=== PATIENT | female | born 1935 | race Caucasian/White ===

== ENCOUNTER → 2019-10-21 11:25 | Outpatient (BNVA) | payer MEDICARE, MEDICAID, SELFPAY | PROVIDERS: Family Provider Electrodiagnostic Medicine; PCP Electrodiagnostic Medicine; Visit Provider Specialist | DX: M25.551 Pain in right hip (principal); S72.141A Displaced intertrochanteric fracture of right femur, initial encounter for closed fracture; X58.XXXA Exposure to other specified factors, initial encounter | CPT/HCPCS: 73502 ==

== ENCOUNTER 2019-10-30 13:28 | Outpatient (RCR) | payer MEDICARE, MEDICAID, SELFPAY ==
[2019-10-30 14:24] LABS: Basophils % 0.3 %; Eosinophils # 0.4 10^3/uL (0.0-0.8); Lymphocytes # 1.7 10^3/uL (0.8-4.8); Lymphocytes % 18.8 %; Mean Corpuscular Hemoglobin 29.4 pg (28.0-34.0); Monocytes # 0.8 10^3/uL (0.2-0.9); Monocytes % 9.3 %; Neutrophils % 67.3 %; Nucleated Red Blood Cells % 0 %; Platelet Count 388 10^3/cmm (130-400); Red Blood Count 4.42 10^6/uL (4.1-5.3); Red Cell Distribution Width 13.9 % (12.1-15.1); White Blood Count 8.9 10^3/uL (4.0-10.0)
[2019-11-02 21:40] LABS: Influenza A by IFA Negative (Negative); Influenza B by IFA Negative (Negative)
== END 2019-11-06 23:59 | disposition home or self-care (01) ==
LOC: LAB 13:28
PROVIDERS: Family Provider Electrodiagnostic Medicine; PCP Electrodiagnostic Medicine; Visit Provider Internal Medicine
DX: D64.9 Anemia, unspecified (principal)
CPT/HCPCS: 85025; 87804

== ENCOUNTER → 2019-11-06 09:16 | Day surgery (SDC) | payer MEDICARE, MEDICAID, SELFPAY ==
[2019-11-05 10:37] VITALS: BMI 18.8
[2019-11-06 09:38] VITALS: BP 169/72; PULSE 72; RESP 18; TEMP 36.9; O2SAT 95
--- NOTE | 2019-11-06 09:56 | XR_ITS ---
WS: [id number] Portable AP upright chest, 11/06/2019 Clinical Data: rule out pneumonia Comparison: Portable chest, 04/14/2019. Findings: No nodules, masses or effusions are seen. The heart is normal. The pulmonary vascularity is not increased.There is a minimal patchy opacity at the right lung base which could represent acute p neumonia. No pneumothorax is seen. There is a hiatal hernia behind the heart. The aortic arch and xi cending aorta are tortuous. Degenerative changes of both shoulder joints is seen. XR/XR chest 1V portable 32361 Impression: 1. Minimal patchy opacity in right lung base which could represent acute pneumo delores and recommend repeat chest x-ray in one to 2 days. 2. Atherosclerosis and hiatal hernia.
[2019-11-06] MEDS: sodium chloride 0.9% 1,000 ML 30 ML IV (10:15)
--- NOTE | 2019-11-06 10:18 | P.ANES_ITS ---
Pre-Anesthetic Assessment Pre-Anesthetic Assessment: Height/Weight: Height 1.7 m Weight 54.431 kg Temp Pulse Resp BP Pulse Ox 98.4 F 72 18 169/72 95 11/06/19 09:38 11/06/19 09:38 11/06/19 09:38 11/06/19 09:38 11/06/19 09:38 Preop Diagnosis: Painful right trochanteric nail hardware Proposed Procedure: Operation Date: 11/06/19 10:45 Proposed Procedures p Hardware Removal Left Hip 37522 T84.84XA(Right) - Delmy Leal MD Familial anesthetic complications: No trouble Was Beta Yue taken within 24 hours: N/A Last intake: NPO > 8 hrs Social: Social History: Tobacco Packs per day: 1 ppd Exam: Pre-Anes Outpt Exam: alert, oriented x 3 and regular rate & rhythm Additional Exam Findings (including area of procedure): Strong wheezes in all lung ortiz, spitting up mucus - will give atrovent and albuterol Airway: Cervical ROM: WNL MP: 2 Additional comments: edentulous Pulmonary: Pulmonary: COPD Comments: hx acute purulent bronchitis, not on oxygen for COPD, has taken steroids within last year, no hospital admissions. Last week had cough and patient felt drug out. She saw Dr. Bonilla and was given a zpack. Today is her last dose of that medicine. ON saturday she was seen at [facility] by dr. antony angel with no concerns. patient feels 100% better,no fever at correction. temp today 98.4 f CV/HEM: CV/HEM: Anemia, Arrythmia and HTN Comments: hx NSTEMI 2017 : : None reported Hepatic: Hepatic: None reported GI: GI: None reported Comments: hx upper gi blled Metabolic: Metabolic: Thyroid Musc/skel: Musc/skel: Lower Back Pain Neuropsych: Neuropsych: CVA Anesthetic Plan: ASA status: IV Anesthesia: General Risk of > 500 ml blood loss (7ml/kg in children): No PFSH Anesthesia PFSH: Social History Smoking and tobacco status: current every day smoker Alcohol intake: never Data Anesthesia Cardiac Studies: No Data to Display
[2019-11-06 10:37] LABS: Basophils % 0.3 %; Eosinophils # 0.1 10^3/uL (0.0-0.8); Eosinophils % 1.4 %; Hematocrit 36.5 % (37.0-47.0); Hemoglobin 11.9 g/dL (11.5-15.3); Lymphocytes # 1.2 10^3/uL (0.8-4.8); Lymphocytes % 11.9 %; Mean Corpuscular HGB Conc 32.6 g/dL (30.0-36.0); Mean Corpuscular Hemoglobin 28.9 pg (28.0-34.0); Mean Corpuscular Volume 88.6 fL (81-99); Mean Platelet Volume 9.5 fL (7.4-10.4); Monocytes # 1.1 10^3/uL (0.2-0.9); Monocytes % 10.9 %; Neutrophils # 7.7 10^3/uL (1.8-7.7); Nucleated Red Blood Cells % 0 %; Platelet Count 434 10^3/cmm (130-400); Red Blood Count 4.12 10^6/uL (4.1-5.3); Red Cell Distribution Width 13.2 % (12.1-15.1); White Blood Count 10.2 10^3/uL (4.0-10.0)
[2019-11-06] MEDS: ipratropium 0.5 mg/2.5 mL Neb INHALATION (10:42)
[2019-11-06 10:45] VITALS: PULSE 66; RESP 18; O2SAT 93
[2019-11-06 10:50] VITALS: PULSE 68
[2019-11-06 10:51] LABS: Anion Gap 14.4 (5-19); Blood Urea Nitrogen 9 mg/dL (8-23); Calcium 9.8 mg/dL (8.5-10.5); Carbon Dioxide 32 mmol/L (22-29); Chloride 94 mmol/L (98-107); Glucose 134 mg/dL (74-106); Osmolality Calculated 282 mOsm/kg (285-295); Potassium 3.4 mmol/L (3.5-5.1); Sodium 137 mmol/L (136-145)
--- NOTE | 2019-11-06 13:10 | SUR.OPER ---
LEAD TELLER attempted to do a spinal, unsuccessful. Patient asked to stop and do procedure when she was over pneumonia. Dr. Leal called to room, talked to patient and agreed to abort case. Patient transferred to OPS
--- NOTE | 2019-11-06 13:14 | PM.MISC ---
Miscellaneous Note Purpose of Documentation: Cancellation of surgery Note: This 83-year-old woman presented today for removal and replacement of hardware from her right hip. The hardware was prominent and causing her discomfort. She presented to the department with a history of a pneumonia which have been treated with 5 days of antibiotics, but she did still have some respiratory symptoms. Additionally, the patient had taken Tamiflu recently secondary to concern for flu. The patient decided to proceed with surgery if we were able to obtain a spinal. This was not able to be placed. The patient wished to discontinue the surgery after she had had the spinal anesthetic attempted.
--- NOTE | 2019-11-06 13:17 | PM.HPUD ---
H&P update H&P Update: DATE OF SURGERY/PROCEDURE: 11/06/19 DATE H&P PERFORMED: 10/21/19 CHANGES TO PREVIOUS DOCUMENTATION: Patient has had symptoms of upper respiratory infection. She has been treated with antibiotics over the past 5 days. She would like to proceed with an attempt at spinal anesthetic for removal and reinsertion of hardware. She states that if the spine was not successful, she would prefer to cancel the case. PREOP DIAGNOSIS: Retained painful hardware right hip PLANNED PROCEDURE: Operation Date: 11/06/19 10:45 Proposed Procedures p Hardware Removal Right Hip 77484 T84.84XA(Right) - Delmy Leal MD Full H&P Medications/Allergies: Current Medications: Current Medications Generic Name Dose Route Start Last Admin Trade Name Freq PRN Reason Stop Dose Admin Sodium Chloride 1,000 mls @ 30 ml s/hr 11/06/19 09:45 11/06/19 10:15 Sodium Chloride 0.9% IV 11/07/19 09:44 30 mls/hr .Q24H DANIAL Administration Perinent History: Social History: Social History Smoking and tobacco status: current every day smoker Alcohol intake: never
[2019-11-06 13:20] VITALS: BP 152/72; PULSE 72; RESP 20; TEMP 37; O2SAT 96
[2019-11-06 13:45] VITALS: BP 155/86; PULSE 76; RESP 20; TEMP 37.2; O2SAT 97
--- NOTE | 2019-11-06 14:03 | SUR.OPER ---
SURGERY CANCELLED DUE TO PT REQUEST AND ON OPINION OF ANESTHESIOLOGIST .PT BROUGHT BACK TO OPS PHASE II AND OBSERVED. PT A+O X 3 TOLERATING PO FLUIDS WELL. FAMILY OF PT CALLED AND INFORMED PER DE REQUEST. [facility] NURSE MARTIN DELGADO.
--- NOTE | 2019-11-06 14:19 | SUR.OPER ---
PT TRANSPORTED BY [facility] TRANSPORT BACK TO [facility].
== END ==
PROVIDERS: Family Provider Electrodiagnostic Medicine; PCP Electrodiagnostic Medicine; Visit Provider Specialist
PROC: (CPT 20680; 2019-11-06 10:45)
DX: Z53.9 Procedure and treatment not carried out, unspecified reason (principal); T84.84XA Pain due to internal orthopedic prosthetic devices, implants and grafts, initial encounter
CPT/HCPCS: 12345; 36415; 71045; 80048; 85025; 94640; J2001; J2704; J7030; J7611; J7644

== ENCOUNTER → 2019-12-09 11:54 | Outpatient (BNVA) | payer MEDICARE, MEDICAID, SELFPAY | PROVIDERS: Family Provider Electrodiagnostic Medicine; PCP Electrodiagnostic Medicine; Visit Provider Specialist | DX: M25.551 Pain in right hip (principal); T84.84XA Pain due to internal orthopedic prosthetic devices, implants and grafts, initial encounter; S72.141A Displaced intertrochanteric fracture of right femur, initial encounter for closed fracture; X58.XXXA Exposure to other specified factors, initial encounter | CPT/HCPCS: 73503 ==

== ENCOUNTER → 2020-11-09 10:26 | Outpatient (BNVA) | payer MEDICARE, MEDICAID, SELFPAY | PROVIDERS: Family Provider Electrodiagnostic Medicine; PCP Electrodiagnostic Medicine; Visit Provider Specialist | DX: M25.551 Pain in right hip (principal) | CPT/HCPCS: 73502 ==

== ENCOUNTER 2020-11-15 21:09 | Inpatient (IN) | payer MEDICARE, MEDICAID, SELFPAY ==
[2020-11-11 09:14] VITALS: BMI 17.8
[2020-11-11 09:30] LABS: Basophils # 0.1 10^3/uL (0.0-0.1); Basophils % 0.3 %; Eosinophils # 0.4 10^3/uL (0.0-0.8); Eosinophils % 2.4 %; Hematocrit 40.1 % (37.0-47.0); Hemoglobin 12.4 g/dL (11.5-15.3); Lymphocytes # 1.5 10^3/uL (0.8-4.8); Lymphocytes % 9.2 %; Mean Corpuscular HGB Conc 30.9 g/dL (30.0-36.0); Mean Corpuscular Hemoglobin 28.8 pg (28.0-34.0); Mean Platelet Volume 9.8 fL (7.4-10.4); Monocytes # 0.9 10^3/uL (0.2-0.9); Monocytes % 5.3 %; Neutrophils # 13.52 10^3/uL (1.8-7.7); Neutrophils % 82.5 %; Nucleated Red Blood Cells % 0 %; Platelet Count 406 10^3/cmm (130-400); Red Blood Count 4.31 10^6/uL (4.1-5.3); Red Cell Distribution Width 14.9 % (12.1-15.1); White Blood Count 16.4 10^3/uL (4.0-10.0)
[2020-11-11 09:32] LABS: Add Urine Microscopic? YES; Bilirubin Urine Neg (Negative); Blood Urine Trace (Negative); Glucose Urine UA Norm (Normal); Ketones Urine Negative (Negative); Leukocyte Esterase Urine Negative (Negative); Nitrate Urine Negative (Negative); Protein Urine Neg (Negative); Specific Gravity, Urine 1.015 (1.005-1.030); Urine Appearance Clear (CLEAR); Urine Color Yellow (Yellow); Urobilinogen Urine Norm (Negative); pH Urine 6 (5-7)
--- NOTE | 2020-11-11 09:35 | ANES.PREANE2 ---
Pre-Anesthetic Assessment Pre-Anesthetic Assessment: Height/Weight: Height 1.7 m Weight 51.71 kg Preop Diagnosis: Failed hardware right hip Proposed Procedure: Operation Date: 11/15/20 13:25 Proposed Procedures p Total Hip Arthroplasty 10908 T84.84XA(Right) - Delmy Leal MD s Hardware Removal Hip(Not Applicable) - Delmy Leal MD Familial anesthetic complications: None Social: Social History: Tobacco and No alcohol Exam: Pre-Anes Outpt Exam: alert, oriented x 3, clear to auscultation bilaterally and regular rate & rhythm Airway: MP: 2 Dentition: False Pulmonary: Pulmonary: COPD CV/HEM: CV/HEM: HTN GI: GI: GERD Metabolic: Metabolic: Thyroid Musc/skel: Musc/skel: OA/DJD Anesthetic Plan: ASA status: 3 Anesthesia: General Risk of > 500 ml blood loss (7ml/kg in children): Yes, adequate IV access and fluids planned PFSH Anesthesia PFSH: Surgical History History of hip surgery History of total left hip arthroplasty Social History Smoking and tobacco status: current every day smoker Alcohol intake: never Data Anesthesia CBC & Chem 7: 11/11/20 09:05 11/11/20 09:05 Other Labs: Laboratory Results - last 48 hr 11/11/20 11/11/20 09:05 09:05 WBC 16.4 H RBC 4.31 Hgb 12.4 Hct 40.1 MCV 93.0 MCH 28.8 MCHC 30.9 RDW 14.9 Plt Count 406 H MPV 9.8 Neut % (Auto) 82.5 Lymph % (Auto) 9.2 [place] % (Auto) 5.3 Eos % (Auto) 2.4 Baso % (Auto) 0.3 Neut # (Auto) 13.52 H Lymph # (Auto) 1.5 [place] # (Auto) 0.9 Eos # (Auto) 0.4 Baso # (Auto) 0.1 Nucleated RBC % (auto) 0 Nucleated RBCs # 0.0 Urine Color Yellow Urine Appearance Clear Urine pH 6 Ur Specific [place] 1.015 Urine Protein Neg Urine Glucose (UA) Norm Urine Ketones Negative Urine Blood Trace H Urine Nitrate Negative Urine Bilirubin Neg Urine Urobilinogen Norm Ur Leukocyte Esterase Negative Amorphous Sediment Not Reportable Cardiac Studies: No Data to Display
--- NOTE | 2020-11-11 09:40 | ECG_ITS ---
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 Measurements Intervals [place] Rate: 64 P: UT: QRS: 53 QRSD: 87 T: 64 QT: 391 QTc: 406 Interpretive Statements JUNCTIONAL RHYTHM Compared to ECG 04/14/2019 15:48:33 Supraventricular rhythm now present Sinus rhythm no longer present T-wave abnormality no longer present Electronically Signed On 11-12-2020 11:10:27 AIR CONDITIONING MANAGER by Bayron Betts M.D. [email or web address]
[2020-11-11 09:51] LABS: Alanine Aminotransferase 8 U/L (0-33); Alkaline Phosphatase 103 IU/L (35-105); Anion Gap 11.3 (5-19); Aspartate Amino Transferase 18 U/L (0-32); Blood Urea Nitrogen 12 mg/dL (8-23); Calcium 9.3 mg/dL (8.5-10.5); Carbon Dioxide 32 mmol/L (22-29); Chloride 97 mmol/L (98-107); Globulin 3.4 g/dL (1.3-4.6); Glucose 121 mg/dL (65-115); Osmolality Calculated 283 mOsm/kg (285-295); Potassium 4.3 mmol/L (3.5-5.1); Sodium 136 mmol/L (136-145); Total Bilirubin 0.4 mg/dL (0.15-1.2); Total Protein 7.4 g/dL (6.6-8.7)
[2020-11-11 10:09] LABS: Bacteria Urine TRACE /hpf; RBC Urine 0-4 /hpf (0-2); WBC Urine 0-4 /hpf (0-5)
[2020-11-15] VITALS (18 sets, daily range): BP systolic 99–140; BP diastolic 20–71; PULSE 63–72; RESP 14–20; TEMP 36.1–36.7; O2SAT 90–100
[2020-11-15] MEDS: sodium chloride 0.9% 1,000 ML 30 ML IV (13:10)
[2020-11-15] MEDS: CELEcoxib 200 mg Capsule 400 MG PO (13:19)
[2020-11-15] MEDS: vancomycin 1,000 MG in sodium chloride 0.9% 250 ML 250 MG IV ×2 (13:30→22:51)
--- NOTE | 2020-11-15 14:01 | W.PM.OPSUD ---
Surgery/Procedure H&P Update DATE OF PROCEDURE: November 15, 2020 DATE H&P PERFORMED: 11/09/20 H&P UPDATE INFORMATION: I have reviewed H&P completed within last 30 days, I have examined patient prior to procedure, No changes to prior documentation and H&P is in [facility] EMR on date indicated PREOP DIAGNOSIS: Retained painful hardware right hip with erosion of acetabulum PLANNED PROCEDURE: Operation Date: 11/15/20 13:25 Proposed Procedures p Total Hip Arthroplasty 21809 T84.84XA(Right) - Delmy Leal MD s Hardware Removal Hip (Not Applicable) - Delmy Leal MD Related Problem List Diagnoses (1) Painful orthopaedic hardware: (2) Intertrochanteric fracture of right hip: Qualifiers: Encounter type: sequela Fracture type: closed Fracture alignment: displaced Qualified Code(s): S72.141S - Displaced intertrochanteric fracture of right femur, sequela
--- NOTE | 2020-11-15 14:04 | P.ANESUD_ITS ---
Pre-Anesthetic Update Pre-Anesthetic Assessment: Date of Surgery/Procedure: 11/15/20 Preop Carmen gnosis: Retained painful hardware right hip with erosion of acetabulum Proposed Procedure: Operation Date: 11/15/20 13:25 Proposed Procedures p Total Hip Arthroplasty 83051 T84.84XA(Right) - Delmy Leal MD s Hardware Removal Hip 05016(Not Applicable) - Delmy Leal MD Any changes to Pre-Anesthetic Assessment?: No Last Intake: Intake Last Liquid Date 11/15/20 Last Liquid Time 19:00 Last Solid Date 11/15/20 Last Solid Time 17:00 Vitals: Temperature 98.1 F 11/15/20 13:04 Temperature Source Temporal Artery S can 11/15/20 13:04 Pulse Rate 65 11/15/20 13:04 Pulse Rhythm 11/15/20 13:00 Pulse Strength 3+ Normal 11/15/20 13:00 Respiratory Rate 18 11/15/20 13:04 Blood Pressure 135/56 11/15/20 13:04 Blood Pressure Shelly n 82 11/15/20 13:04 Pulse Oximetry 90 11/15/20 13:04 Oxygen Delivery Me thod 11/15/20 13:04 Exam: Pre-Anes Outpt Exam: alert, oriented x 3, clear to auscultation bilaterally and regular rate & rhythm Cardiac Studies: No Data to Display
[2020-11-15] MEDS: ceFAZolin 1,000 mg SDV 1000 MG IRRIGATION (16:24)
[2020-11-15] MEDS: vancomycin 1,000 MG SDV 1000 MG XX (16:25)
--- NOTE | 2020-11-15 18:46 | XR_ITS ---
WS: [id number] Right hip, 7 views, 11/15/2020 Clinical Data: intra-op Comparison: Right hip and pelvis, 11/09/2020. Findings: There has been a complex revision of the right hip nail. There is a different intramedullary marilynn in t he proximal portion of the left femur. There is an acetabular cup in the right acetabulum fixed with an orthopedic screw.The proximal right femoral head, neck and intertrochanteric region have been rese cted. There are retractors in the region of the right hip. XR/XR hip RT 2-3V wo/w pel* [id number] Impression: Revision of right hip nail reducing right intertrochanteric fracture. Insertion of right acetabular cup and new intramedullary marilynn with resection of the proximal right femur.
[2020-11-15 18:56] LABS: Basophils % 0.5 %; Eosinophils # 0.4 10^3/uL (0.0-0.8); Eosinophils % 5.7 %; Hematocrit 31.2 % (37.0-47.0); Hemoglobin 9.7 g/dL (11.5-15.3); Lymphocytes # 1.5 10^3/uL (0.8-4.8); Lymphocytes % 19.8 %; Mean Corpuscular HGB Conc 31.1 g/dL (30.0-36.0); Mean Corpuscular Hemoglobin 29.5 pg (28.0-34.0); Mean Corpuscular Volume 94.8 fL (81-99); Mean Platelet Volume 10.1 fL (7.4-10.4); Monocytes # 0.8 10^3/uL (0.2-0.9); Monocytes % 10.1 %; Neutrophils % 63.1 %; Nucleated Red Blood Cells % 0 %; Platelet Count 299 10^3/cmm (130-400); Red Blood Count 3.29 10^6/uL (4.1-5.3); Red Cell Distribution Width 14.6 % (12.1-15.1); White Blood Count 7.8 10^3/uL (4.0-10.0)
[2020-11-15] MEDS: tranexamic acid 1,000 mg/10mL SDV 1000 MG (20:00)
--- NOTE | 2020-11-15 20:53 | SUR.PHASEI ---
2052 PT HAS SENSATION/MOVEMENT TO BILATERAL LOWER EXTREMITIES, R. PEDAL PULSE PALPATED, CAP REFILL <3 SEC, FIRST ICE APPLIED
--- NOTE | 2020-11-15 20:59 | XR_ITS ---
WS: [id number] Right hip, AP and lateral, AP pelvis, yesterday, 2056 hours Clinical Data: Status post revision total hip arthroplasty right Comparison: Right hip and femur, 11/15/2020, 1845 hours. Findings: A right hip arthroplasty is in good position. The femoral head portion is within the acetabular cup. There is a long intramedullary marilynn in the proximal right femur. There is an intramedullary marilynn in the left femur. XR/XR hip RT 2-3V wo/w pel* [id number] Impression: Right hip arthroplasty revising a right hip nail.
[2020-11-15] MEDS: fentaNYL 50 mcg/mL INJ 2mL IVP ×2 (21:01→21:06)
--- NOTE | 2020-11-15 21:07 | P.OP_ITS ---
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 Procedure Done: Right revision total hip arthroplasty with removal of orthopedic hardware Implants: [place] revision total hip system with a size 54 mm by E alpha code Tritanium cluster hole acetabular shell with 2 screws and a dome hole plug, and MDM cementless liner size 42 mm inner diameter by E alpha code, DBM plus putty with cancellous chips, Lutheran Modular stem system with a size 21 mm diameter by 155 mm length, a size 25 mm +10 height calcar, with a ceramic Biolox femoral head 28 mm outer diameter with +0 mm length, and a MDM insert size 28 mm inner diameter with a size 40 2E alpha code Specimens removed/disposition: Femoral head sent to pathology Pathology: none sent (Femoral head) Surgeon: Delmy Leal Honing Machine Operator Production: [employer] [facility] OR technicians Anesthesia: MAC (With spinal, ASA 3) Estimated blood loss (mL): 1,600 IV fluids (mL): 1,900 Urine output (mL): 200 Complications: None Findings: Avascular necrosis of the femoral head with loosening of the lag screw. Obliteration of cartilage in the acetabulum, and severe deformity of the femoral head. Osteopenia and very thin cortices Condition: stable Disposition: PACU (Then to floor for postoperative treatments) Brief History: This 84-year-old woman previously underwent long trochanteric nail for a fracture of the intertrochanteric area of the right femur. She collapsed at the fracture enough to have prominence of the lag screw, and last October,, we had planned to do an exchange of the lag screw. The patient came to the hospital and then refused to have the surgery. She therefore was discharged back to the skilled facility where she lives. She returned to the office in December of last year, and x-rays remain unchanged. Most recently, she came to the office complaining of severe right hip pain. X-ray imaging demonstrated that the head had gone on to full avascular necrosis with erosion of the lag screw through the femoral head and into the acetabulum. After discussion with the patient and her family, we planned a complex right total hip revision. Procedure: Patient was brought to the operating theater. She was transferred to the operating room table and administered a spinal anesthetic with IV sedation, ASA 3. Following administration of adequate anesthesia, the patient was placed in full lateral position and held in position with a pegboard. Also, the patient had minimal movement in her right lower extremity preoperatively. The patient's right lower extremity was then prepped and draped in usual fashion utilizing DuraPrep. It was draped free. Following prepping and draping a surgical pause was performed. At the time of surgical pause, we identified the site and side of surgery. We also identified the patient and preoperative surgical markings. Confirmation was made of equipment availability. Additionally, the patient's preoperative IV antibiotic, vancomycin 1 g, was confirmed as being given in a timely fashion and being the appropriate antibiotic. Following the surgical pause, an incision was made centering over the patient's greater trochanter continuing proximally and distally as necessary to allow access to the hip joint and the patient's previous hardware. Dissection continued through skin and soft tissues using a scalpel, and hemostasis was obtained using electrocautery. The tensor fascia benjamin was identified and incised longitudinally. Exposure was quite difficult secondary to the patient's very limited range of motion. The tensor fascia benjamin incision was continued distally enough to allow access to the lag screw from the trochanteric nail. Sciatic nerve was identified and protected throughout the surgical procedure. A Charnley U retractor was placed after the tensor fascia benjamin had been incised longitudinally, and the sciatic nerve had been identified. The hip was internally rotated, but this rotation was very limited. Evaluation of soft tissues demonstrated there was a piriformis muscle which was tagged. There was significant scarring about the hip as well. Piriformis muscle along with the remaining short external rotators were then incised from the posterior aspect of the hip joint. These were retracted posteriorly. At this point, attention was directed to the tip of the trochanter with an attempt to find the previously placed trochanteric nail so that we could remove the setscrew. Dissection continued until we were able to find the proximal portion of the trochanteric nail. We then were able to place a screwdriver and release the setscrew. In this manner, we were able to remove the lag screw from the lateral aspect of the femur. The lag screw was removed without difficulty. We then trimmed bone around this hole from the lag screw. Upon evaluation, it was noted that the femoral head was completely eroded around this lag screw. Once the lag screw was removed, we returned to the proximal aspect of the nail. We were unable to place any device to remove the nail until we were able to completely remove the setscrew. This was screwed back into its locking position, and in this manner, we were able to place the bolt from the jogging system that held the proximal portion of the nail. The nail was then able to be removed once soft tissues were cleared from around the proximal portion of the nail. Of note, there were no distal screws. At this point, attention was redirected to the posterior aspect of the hip joint. There was noted to be significant scarring about the hip joint. Care was taken to avoid injury to the sciatic nerve during the process of entry into the hip joint. We were unable to manipulate the femur secondary to severe contracture of the hip. The capsule was entered in a T-type fashion with the edges being tagged. An osteotomy was accomplished of the femoral neck while it was in the acetabulum. This was complex with a combination of a saw and osteotome. The femoral head was removed with a rongeur and a large towel clamp. The head was sent to pathology. We then evaluated the acetabulum. There was noted to be cartilage loss in the superior weightbearing portion of the acetabulum secondary to the screw. The femur was gently retracted anteriorly. Soft tissues were retracted and the labrum was removed. We then began reaming. Once the femoral head was removed, there was no evidence of infection, but there was significant loss of cartilage over the head and over the acetabulum. Significant soft tissue was removed from the acetabulum. This was fibrous tissue that was a response to significant inflammation and the patient's damage to the acetabulum. Once this was removed. We evaluated the acetabulum and found significant posttraumatic change requiring total hip arthroplasty as opposed to bipolar. We reamed to a size 53 mm to allow for a size 54 mm acetabular shell. The acetabulum was impacted into position. 2 screws were placed to further secure the acetabulum. Prior to impacting the acetabulum, bone grafting the medial wall was accomplished with DBM putty with cancellous bone chips as this was noted to be quite thin. The cup was noted to seat nicely and had good fixation upon impact. Screw holes were filled in the cup as well as the dome hole with the appropriate metal plugs. The metal liner was then carefully placed into the acetabulum and i mpacted. Also, we confirmed that the acetabular insert was completely seated prior to addressing the femur. Attention was directed to the proximal femur. The proximal femur was lifted out of the wound as much as possible. The bone was noted to be very thin and care was taken to protect this throughout the preparation of the femur. There was complete loss of the femoral neck and calcar. A canal finder was passed very carefully so we did not penetrate the femoral cortex. Reaming of the femoral canal was then accomplished with sequential sized reamers. X-ray imaging was used to assure that we were within the femoral canal. We further confirmed this by palpation of the femur through the incision. We were able to ream to a size 21, and at this point, we had good resistance. It was felt that the patient's bone was nearly paperthin and any larger may violate her cortex. Therefore, the reamer was removed and the implant was impacted into position. We then reamed proximally for the calcar Calcar reaming was accomplished to a size 25. Initially, we reamed to a 27, however, we needed to remove the hip stem and ream further as the initial construct was too long. We were able to ream and then replaced the 21 mm stem and onto this we placed the 25 mm diameter calcar. We were able to place a +10 calcar replacement. Once this was in position, multiple trial reductions were accomplished. We were able to reduce the hip with a +0 mm femoral head inside of the MDM insert and liner. With this, we had excellent stability. We were able to flex the hip to 90 degrees and internally rotate approximately 60 degrees with 30 degrees of adduction. Leg lengths were felt to be restored. The hip was tight but was not felt to be overtightened. Trial components were then removed and we placed the 25 mm calcar replacing prosthesis in appropriate position. This was tightened and then torqued appropriately. Following this, we assembled the femoral head and the MDM insert together and placed this onto the proximal portion of the femoral stem. The wound was copiously irrigated. The hip was reduced. With this in place, we had the above stabilities, and at that time, we felt that we had restored leg lengths. We also felt that we had excellent stability noted above. Being satisfied with the prosthesis, attention was directed to closure. Closure was accomplished with 0 Vicryl in the capsular tissues. Piriformis was reattached with 0 Vicryl as well. The vastus lateralis was closed with a running 2-0 Monocryl. Tensor fascia benjamin was closed with 0 Vicryl in an inter rupted fashion. The subcutaneous tissues were closed 2-0 Monocryl. Vancomycin powder and a Gelfoam thrombin mixture was placed into the wound as well. The skin was closed with skin abril. This was followed by Lissa andKartik, and David. The patient was placed in an abduction pillow. She was returned the Recovery Room in a satisfactory condition and will be discharged to the floor for postoperative rehabilitation and pain management. There were no complications. Associated Problem List Diagnoses (1) Painful orthopaedic hardware: (2) Intertrochanteric fracture of right hip: Qualifiers: Encounter type: sequela Fracture alignment: displaced Fracture type: closed Qualified Code(s): S72.141S - Displaced intertrochanteric fracture of right femur, sequela (3) Failed hardware: (4) Traumatic arthritis of right hip:
--- NOTE | 2020-11-15 21:20 | ANE.PACU2 ---
Inpatient post-anesthesia follow up: Airway intact: Yes Vital signs: Temperature 97.4 F Pulse Rate 71 Respiratory Rate 16 Blood Pressure 124/62 Pulse Oximetry 92 Oxygen Delivery Me thod Room Air Oxygen Flow Rate Fraction of Inspir ed Oxygen Hydration adequate: Yes Nausea and vomiting: No Pain level: 2 Mental status: Baseline Additional Comments: Significant blood loss during procedure, stable, plan to transfuse.
--- NOTE | 2020-11-15 21:50 | PC.NURSE ---
Patient gave verbal consent to receive a blood transfusion at this time. This nurse and Tracy Jenkins LPN at bedside when verbal consent was given. 2150 1st unit of blood was started at this time. 2205- 15 minutes after the start of the blood. Patient tolerating blood transfusing well. No obvious signs of a reaction at this time. 2229 - Patient continues to show no obvious signs of a reaction to the transfusing blood. Patient care turned over to Tracy Jenkins LPN.
--- NOTE | 2020-11-15 22:12 | PM.CONSULT ---
Providers/Reason For Consult Consulting Physican/Specialty*: Frase/Hospitalist Reason for Consult*: COPD Requesting Physcian: Dr Leal Attending Physician: Delmy Leal MD Primary Care Provider: Fareed Benavides DO History of Present Illness History of Present Illness Maureen Rogers is a 84 year old female who presented to [facility] for planned right total hip arthroplasty. She had previously had an open reduction and internal fixation after a right femur fracture with eventual hardware migration leading to increasing pain. Surgical repair has been planned for quite some time but was delayed on several occasions due to respiratory issues, inability to obtain adequate spinal anesthesia, Covid, lower extremity wounds and fear of getting through surgery. Dr. Muir performed hardware removal and arthroplasty today and an approximately 5-hour long surgery. She had anticipated blood loss and is currently receiving transfusion. Postoperatively she is sleepy but will arouse to answer questions. She states that her pain is a 10 out of 10 when asked but is quickly back to sleep. From my observations it looks like she is okay if she is not trying to move around. She reports that her breathing has been okay lately. No recent steroids, antibiotics or increased need for breathing treatments. Last bowel movement was yesterday. Denies problems with chest pain recently although does have some chronic back pain and multijoint pain related to arthritis and prior surgeries. She is chronically on extended release morphine 30 mg twice a day as well as a multiphase extended release formulation 30 mg once a day. She takes hydrocodone 7.5 for breakthrough pain up to every 4 hours as needed. This equates to 135 morphine milliequivalents per day as a baseline. She did receive spinal anesthesia prior to surgery. She can currently move her toes. She is receiving scheduled Tylenol and as needed hydrocodone presently. Hospitalist have been consulted due to her history of COPD and hypertension along with chronic narcotic use. History was obtained from a combination of review of old records and verification with patient although level of sedation postoperatively hinders this process a bit. Patient tells me that she lives with her daughter but will be going to a long-term after surgery. That being said address is listed as [place] and recent Covid testing came from [place]. Unable to confirm if she continues to smoke at this time due to sedation. Given the time of night and lack of clinical urgency/impact to current care, I did not attempt to contact family to verify these findings this evening. Review of Systems Narrative: Review of systems is currently limited due to sedation postoperatively. She denies headache, upper respiratory symptoms, increased difficulty breathing recently, chest pain, nausea or vomiting, diarrhea or constipation. Denies recent change in urine output. Always hurts in her back and extremities, not really able to differentiate chronic pain from acute pain at the moment. Further review of systems is currently unavailable due to sedation. Meds/Allergies Home Medications and Allergies Home Medications Medication Instructions Recorded Confirmed Last Taken Type levothyroxine 75 mcg capsule 75 mcg PO ONCE 10/21/19 11/15/20 11/14/20 History morphine 30 mg capsule,extended 30 mg PO Q24H 10/21/19 11/15/20 11/15/20 07:00 History release 24 hr multiphase omeprazole 20 mg capsule,delayed 20 mg PO BID 10/21/19 11/15/20 11/15/20 07:00 History release amlodipine 5 mg PO DAILY 11/05/19 11/15/20 11/15/20 07:00 History tiotropium bromide [Spiriva 2 puff INHALATION DAILY 11/05/19 11/15/20 11/14/20 History Respimat] [id number] 1,000 cap PO DAILY 11/06/19 11/15/20 11/14/20 History bisacodyl 10 mg rectal suppository 10 mg [place] DAILY PRN 12/09/19 11/15/20 11/07/20 History albuterol sulfate 0.63 mg/3 mL 0.63 mg INHALATION Q4H 03/30/20 11/15/20 11/14/20 History solution for nebulization duloxetine 60 mg capsule,delayed 60 mg PO DAILY 03/30/20 11/15/20 11/14/20 History release ferrous sulfate 325 mg (65 mg 325 mg PO DAILY 03/30/20 11/15/20 11/07/20 History iron) tablet hydrocodone 7.5 mg-acetaminophen 1 tab PO Q4H PRN tab 03/30/20 11/15/20 11/14/20 History 325 mg tablet mecobalamin (vitamin B12) 5,000 See Rx Instructions .ROUTE .COMPLEX 03/30/20 11/15/20 11/14/20 History mcg disintegrating tablet morphine 30 mg tablet,extended 30 mg PO Q12H 03/30/20 11/15/20 11/15/20 07:00 History release sennosides 8.6 mg capsule 8.6 mg PO BID PRN 03/30/20 11/15/20 11/14/20 History Allergies Allergy/AdvReac Type Severity Reaction Status Date / Time No Known Allergies Allergy Verified 11/15/20 12:45 PFSH Acute PFSH: Medical History (Updated 11/16/20 @ 00:28 by Gloria Smalls MD) COPD (chronic obstructive pulmonary disease) Depression Hiatal hernia with gastroesophageal reflux History of cardiac arrhythmia unclear details History of PFTs (~2016) moderate obstructive defect, normal lung volumes, reduced diffusion capacity, no significant bronchodilator response History of upper gastrointestinal bleeding Hypertension Hypothyroidism Normal cardiac stress test (~2015) Osteoarthritis Pulmonary nodule 2.1 cm left lower lobe (minimal metabolic activity) and 5mm right upper lobe in 2017 PET Scan; PET scan request made in 07/2020 but unclear if has been done as of 11/15/20 Surgical History (Updated 11/15/20 @ 23:26 by Gloria Smalls MD) H/O: hysterectomy History of appendectomy History of back surgery x2 History of hip surgery left hip fracture repaired with gamma nail, subsequently removed History of left knee surgery left total knee arthroplasty 2009, subsequent fall with fracture requiring internal fixation 2013 History of open reduction and internal fixation (ORIF) procedure (~03/2019) right hip History of total left hip arthroplasty History of total right hip arthroplasty (11/15/20) revision type, with removal of hardware from prior ORIF Family History (Updated 11/15/20 @ 23:25 by Gloria Smalls MD) Other CAD (coronary artery disease) Social History (Updated 11/16/20 @ 00:06 by Gloria Smalls MD) Smoking and tobacco status: current every day smoker Alcohol intake: never Substance/Drug Use: never Vitals/I&O/Wt Last Vital Signs Temp 97.4 F L 11/15/20 21:50 Pulse 71 11/15/20 21:50 Resp 18 11/15/20 21:50 BP 99/60 11/15/20 21:50 Pulse Ox 98 11/15/20 21:50 11/15/20 11/15/20 11/15/20 06:59 14:59 22:59 Intake Total 350 / 350 2009 / 0 Output Total 1800 / 1800 Balance 350 / 350 210 / 560 Physical Exam Const: OTHER: Sleepy, arousable but quick to fall back asleep, oriented to person and place, knows that she has had surgery, generally speaking cooperative HENMT: OTHER: Normocephalic atraumatic, nasopharynx is clear, slightly dry mucous membranes Eye: OTHER: Pupils are equal, not pinpoint, reactive Neck/C-Spine: OTHER: Supple Resp: OTHER: Scattered wheeze noted on the left but cleared with cough, clear on the right, no accessory muscle use noted Cardio: OTHER: Regular rate and rhythm, 2/6 flow murmur, 2+ radial pulses, 1+ dorsalis pedis pulses bilaterally GI: OTHER: Abdomen soft, nontender, nondistended with positive bowel sounds : OTHER: Normal external genitalia, Juarez catheter noted Extremity: NARRATIVE EXTREMITY EXAM: Abductor pillow is in place, no lower extremity edema, dressing is grossly intact to the right hip area under ice pack which was not removed at this time Neuro: OTHER: Face symmetric, speech is clear, can move toes of both feet equally Psych: OTHER: Sleepy/sedate postoperatively answers simple questions though not sure of the accuracy of some of her responses presently Skin: OTHER: Skin dry, no acute rashes noted, did not remove ice packing/dressing to evaluate surgical site at this time Urinary Catheter Management^: F: Cath Placed During This Visit: yes Urinary Catheter Date of Insertion: 11/15/20 Urinary Catheter Time of Insertion: 15:30 Data Labs: Other Labs: Laboratory Tests 11/11/20 09:05 Hgb 12.4 Hct 40.1 Covid testing was negative on 11/14/2020 per scanned report A&P Assessment and plan (1) History of total right hip arthroplasty: POD 0 Status: Acute (2) Acute blood loss anemia: anticipated given complexity and length of surgery, receiving transfusion already hemoglobin was 12 a few days ago and has dropped to 9.7 postop Status: Acute (3) COPD (chronic obstructive pulmonary disease): not currently acute, I have not yet been able to discern if she is on oxygen or room air at baseline looks to have some chronic CO2 elevation in the low 30s Status: Chronic Qualifiers: COPD type: emphysema Emphysema type: unspecified Qualified Code(s): J43.9 - Emphysema, unspecified (4) Chronic narcotic use: At baseline prescribed 135 MMEs per day according to current home medication list Status: Chronic (5) Hypertension: chronically on amlodipine, currently controlled Status: Chronic Qualifiers: Hypertension type: essential hypertension Qualified Code(s): I10 - Essential (primary) hypertension Additional A&P Information Mild elevation in blood sugar noted on recent laboratory studies without a history of diabetes and without clear history of recent steroid use Hypothyroidism on levothyroxine Reflux disease on chronic PPI Depression chronically on duloxetine After reviewing available records and discussing with patient I have resumed her extended release morphine 30 mg every 12 hours to start at 6:00 in the morning We will provide IV morphine tonight if needed Continue as needed hydrocodone Has Narcan available if needed Continue scheduled Tylenol as ordered x3 doses Scheduled breathing treatments with albuterol as well as as needed breathing treatments ABG as needed for significant changes in mental status Continue current oxygen and clarify if on oxygen at home when more awake Clarify current tobacco use status once more awake, order nicotine replacement if indicated/desired Continue home Spiriva Incentive spirometry Continue home amlodipine, monitoring blood pressures for need to hold currently Continue home levothyroxine Continue laxative therapy Continue iron replacement Recheck hemoglobin in the morning, with further transfusions as indicated Monitor blood sugars for increase necessitating intervention or further evaluation Continue Juarez catheter tonight, removing as per usual postoperative protocol SCDs currently with initiation of pharmacological DVT prophylaxis as per surgery PT and OT have been ordered From discussion with patient plan is for disposition to skilled facility once medically stable Supportive care otherwise We will follow along and address medical issues as needed Thank you for consultation Consult Attestations Medical Necessity Statement: As per attending physician Coding Level of Care Code Acute Flight Operations Manager for Jesusg Fwd Diagnoses History of total right hip arthroplasty Z96.641 Acute blood loss anemia D62 COPD (chronic obstructive pulmonary disease) J43.9 COPD type: emphysema Emphysema type: unspecified Chronic narcotic use F11.90 Hypertension I10 Hypertension type: essential hypertension
[2020-11-15] MEDS: sodium chloride 0.9% (100 ml) 100 ML 125 ML (22:16)
--- NOTE | 2020-11-15 23:09 | PC.NURSE ---
Patient is A&Ox3. Respirations even and non-labored on room air. Patient states that she fell at her home where she lives with her daughter- Josy Jara.
--- NOTE | 2020-11-15 23:12 | PC.NURSE ---
Patient declined the Flu shot stating that she received it for the current season and declined the pneumonia shot stating that she has had it in the last 5 yrs.
[2020-11-16] VITALS (15 sets, daily range): BP systolic 119–159; BP diastolic 54–77; PULSE 65–86; RESP 16–19; TEMP 36.3–37; O2SAT 92–98
[2020-11-16 03:11] LABS: Anion Gap 13.5 (5-19); Basophils # 0.1 10^3/uL (0.0-0.1); Basophils % 0.2 %; Blood Urea Nitrogen 22 mg/dL (8-23); Calcium 8.2 mg/dL (8.5-10.5); Carbon Dioxide 24 mmol/L (22-29); Chloride 103 mmol/L (98-107); Glucose 116 mg/dL (65-115); Hematocrit 33.3 % (37.0-47.0); Hemoglobin 10.1 g/dL (11.5-15.3); Lymphocytes # 0.7 10^3/uL (0.8-4.8); Lymphocytes % 3.1 %; Mean Corpuscular HGB Conc 30.3 g/dL (30.0-36.0); Mean Corpuscular Hemoglobin 29.1 pg (28.0-34.0); Mean Platelet Volume 10.1 fL (7.4-10.4); Monocytes # 1.2 10^3/uL (0.2-0.9); Monocytes % 5.3 %; Neutrophils # 21.33 10^3/uL (1.8-7.7); Neutrophils % 91.1 %; Nucleated Red Blood Cells % 0 %; Osmolality Calculated 286 mOsm/kg (285-295); Platelet Count 307 10^3/cmm (130-400); Potassium 4.5 mmol/L (3.5-5.1); Red Blood Count 3.47 10^6/uL (4.1-5.3); Red Cell Distribution Width 14.9 % (12.1-15.1); Sodium 136 mmol/L (136-145); White Blood Count 23.4 10^3/uL (4.0-10.0)
[2020-11-16] MEDS: morphine ER (12 HR) 30 mg tablet PO ×2 (05:50→17:44)
[2020-11-16] MEDS: levothyroxine 75 mcg Tablet PO (08:24)
[2020-11-16] MEDS: cholecalciferol (vitamin D3) 1,000 unit Tablet 1000 UNIT PO (08:25)
[2020-11-16] MEDS: duloxetine 60 mg Capsule PO (08:25)
[2020-11-16] MEDS: HYDROcodone-acetaminophen 7.5-325 mg Tablet 1 TAB PO ×4 (08:25→23:24)
[2020-11-16] MEDS: pantoprazole DR 40 mg Tablet PO ×2 (08:27→17:44)
[2020-11-16] MEDS: multivitamin therapeutic Tablet 1 TAB PO (08:27)
[2020-11-16] MEDS: sennosides-docusate Tablet 2 TAB PO ×2 (08:27→17:44)
[2020-11-16] MEDS: amlodipine 5 mg Tablet PO (08:27)
[2020-11-16] MEDS: aspirin 325 mg EC Tablet PO (08:27)
[2020-11-16] MEDS: ferrous sulfate EC 325 mg Tablet PO (08:27)
[2020-11-16] MEDS: mupirocin oint 22 gm 1 APPLIC NASAL ×2 (08:27→17:45)
[2020-11-16] MEDS: chlorhexidine gluconate 0.12% Btl 473 mL 30 ML MUCOUS MEM ×4 (08:28→20:46)
[2020-11-16] MEDS: iron polysaccharide complex 150 mg Capsule PO ×2 (08:47→17:44)
--- NOTE | 2020-11-16 09:08 | PC.CHAP ---
Pastoral Care Encounter/Spiritual Assessment Type of Contact [] Declined liquor grinder mill operator visit [] Patient/Family/Request visit [] Outpatient visit [] Follow-up visit [] Physician referral [] Code/Alert [x] Routine visit [] Staff referral [] Actively dying [] Patient sleeping [] Family support [] [] Out of room [] Palliative care [] [] Receiving care in room [] Pre-surgical visit [] Trauma [] Long length of stay [] ICU visit [] Other: Relational/Emotional Strength [] Patient feels connected with others/family/visitors/staff [] Distress [] Loneliness/isolation [] Abandonment Spirituality of Patient [x] Person of Carly [] Attends Caodaism of their Carly [] Believes in Prayer [] Reads Bible or Catholic materials [] There are Spiritual issues to be addressed Sexton Helper Interventions [x] Prayer [] Active listening [] Non-anxious presence [] Spiritual/emotional support [] Crisis/trauma care [] Spiritual counseling [] Bereavement support [] Provided bereavement packet [] Provided Bible/devotional materials [] Provided toy/stuffed animal, coloring book to patient or family member [] Provided Communion [] Anointing/[place] [] Salvation [] Completed spiritual assessment [] Other: Impact on Illness or Injury [] Angry [] Fearful [] Anxious [] Often cries [] Exhaustion [] Unable to work [] Unable to attend buddhism [] Unable to walk/stand [] Unable to read [] Unable to drive [] Unable to eat/drink [] Unable to sleep [] Unable to be with family [] Patient intubated [] Other: Summary Time spent with patient 10 min
--- NOTE | 2020-11-16 10:22 | P.PN_ITS ---
Subjective Subjective: Interval history: Patient reports doing much better this morning. She denies shortness of breath or chest pain. She already had physical therapy and appears to be doing well. She denies previous history of diabetes or heart disease. White blood cell count significantly increased and appears to be related to surgery although underlying infection cannot be ruled out. Patient is a smoker and reports smoking approximate 10 cigarettes a day. Reports that she is not ready to quit. Vitals/I&O/Wt Last Vital Signs Temp 98.6 F 11/16/20 07:49 Pulse 84 11/16/20 09:22 Resp 18 11/16/20 09:12 BP 145/68 11/16/20 07:49 Pulse Ox 96 11/16/20 09:12 11/15/20 11/16/20 11/16/20 22:59 06:59 14:59 Intake Total 2110 / 2460 800 / 3260 Output Total 1800 / 1800 250 / 2050 Balance 310 / 660 550 / 1210 Physical Exam Narrative: EXAM NARRATIVE: Overall decreased air movement but otherwise relatively clear. Heart is regular and abdomen soft and nontender. No lower extremity edema. Urinary Catheter Management^: F: Cath Placed During This Visit: yes Reason for Continuing Indwelling Catheter: Accurate Measurement of Urinary Output in Critically Ill Patients Urinary Catheter Date of Insertion: 11/15/20 Urinary Catheter Time of Insertion: 15:30 Data : 11/16/20 02:17 11/16/20 02:17 A&P Assessment and plan (1) History of total right hip arthroplasty: POD 0 Status: Acute (2) Acute blood loss anemia: anticipated given complexity and length of surgery, receiving transfusion already hemoglobin was 12 a few days ago and has dropped to 9.7 postop Status: Acute (3) COPD (chronic obstructive pulmonary disease): not currently acute, I have not yet been able to discern if she is on oxygen or room air at baseline looks to have some chronic CO2 elevation in the low 30s Status: Chronic Qualifiers: COPD type: emphysema Emphysema type: unspecified Qualified Code(s): J43.9 - Emphysema, unspecified (4) Chronic narcotic use: At baseline prescribed 135 MMEs per day according to current home me dication list Status: Chronic (5) Hypertension: chronically on amlodipine, currently controlled Status: Chronic Qualifiers: Hypertension type: essential hypertension Qualified Code(s): I10 - Essential (primary) hypertension Additional A&P Information PLAN: Will request urinalysis prior to Juarez catheter being pulled out. We will request portable x-ray. Continue monitoring. Attestations Medical Necessity Statement*: Patient post hip surgery and leukocytosis requires close inpatient monitoring and treatment as well as evaluation. Coding Level of Care Code Acute Putter In for Jennifer Fwd Diagnoses History of total right hip arthroplasty Z96.641 Acute blood loss anemia D62 COPD (chronic obstructive pulmonary disease) J43.9 COPD type: emphysema Emphysema type: unspecified Chronic narcotic use F11.90 Hypertension I10 Hypertension type: essential hypertension
--- NOTE | 2020-11-16 10:24 | XR_ITS ---
WS: [id number] Portable AP upright chest, 11/16/2020 Clinical Data: Leukocytosis, concern for pneumonia Comparison: Portable chest, 11/06/2019. Findings: No nodules, masses or effusions are seen. The heart is normal. The pulmonary vascularity is not increased. No pneumonia or pneumothorax is seen. The aortic arch and descending aorta show calci fication and tortuosity. The diaphragms are flattened. There is arthritic change of both shoulders. T here is a levoscoliosis of the thoracic spine. There is a hiatal hernia behind the heart. XR/XR chest 1V portable [id number] Impression: Hyperinflation and atherosclerosis.
[2020-11-16] MEDS: calcium carbonate 500 mg Chew Tablet 1000 MG PO ×2 (11:41→17:44)
--- NOTE | 2020-11-16 15:40 | PM.PN ---
Subjective Subjective: Interval history: Patient reports doing much better this morning. She denies shortness of breath or chest pain. She already had physical therapy and appears to be doing well. She notes that she feels better than she did prior to her surgery. Vitals/I&O/Wt Last Vital Signs Temp 97.7 F 11/16/20 11:18 Pulse 86 11/16/20 15:11 Resp 18 11/16/20 14:58 BP 131/54 11/16/20 11:18 Pulse Ox 96 11/16/20 14:58 11/16/20 11/16/20 11/16/20 06:59 14:59 22:59 Intake Total 800 / 3260 50 / 50 Output Total 250 / 2050 250 / 250 Balance 550 / 1210 -200 / -200 Physical Exam Const: COMMON NORMALS: no acute distress, average body habitus, patient oriented x3 and alert GENERAL APPEARANCE: cooperative and comfortable ORIENTATION/CONSCIOUSNESS: Yes awake HENMT: COMMON NORMALS: normocephalic and atraumatic HEAD & SCALP: normocephalic and atraumatic Eye: GENERAL EYE: appearance normal, both eyes and all related structures Chest: COMMONS NORMALS: normal inspection of the chest Resp: COMMON NORMALS: normal respiratory effort EFFORT & INSPECTION: Yes able to speak in complete sentences and Yes symmetric chest movement Extremity: RIGHT LOWER EXTREMITY: Yes hip joint Right hip: Yes inspection (Dressing is removed, and the wound is benign.), Yes palpation (Minimal tenderness to palpation), Yes ROM (Not evaluated) and Yes neurovascular exam (Evidence of DVT, intact otherwise.) Neuro: COMMON NORMALS: patient oriented x3 SENSORIUM/ORIENTATION: Yes alert Psych: COMMON NORMALS: mental status grossly normal APPEARANCE: Yes grossly normal ATTITUDE: Yes calm and Yes engaged ATTENTION/CONCENTRATION: Yes attention grossly intact Skin: COMMON NORMALS: no rashes or lesions noted GENERAL SKIN EXAM: no rashes or lesions noted Urinary Catheter Management^: F: Cath Placed During This Visit: yes Reason for Continuing Indwelling Catheter: Accurate Measurement of Urinary Output in Critically Ill Patients Urinary Catheter Date of Insertion: 11/15/20 Urinary Catheter Time of Insertion: 15:30 Data : 11/16/20 02:17 11/16/20 02:17 A&P Assessment and plan (1) Traumatic arthritis of right hip: Patient is status post revision right total hip arthroplasty. This was a complex revision and involves removal of hardware as well. She is doing well today, and she actually notes that she is more comfortable than she was prior to her surgery. She will continue with physical therapy touchdown weightbearing. Status: Acute (2) Painful orthopaedic hardware: Status: Acute (3) Intertrochanteric fracture of right hip: Status: Chronic Qualifiers: Encounter type: sequela Fracture type: closed Fracture alignment: displaced Qualified Code(s): S72.141S - Displaced intertrochanteric fracture of right femur, sequela (4) Failed hardware: Status: Acute Attestations Medical Necessity Statement*: Patient requires pain management, physical therapy, and medical monitoring. Coding Level of Care Code Acute Chair Frame Builder for Jennifer Lagos Diagnoses Traumatic arthritis of right hip M12.551 Painful orthopaedic hardware T84.84XA Intertrochanteric fracture of right hip S72.141S Encounter type: sequela Fracture type: closed Fracture alignment: displaced Failed hardware
[2020-11-16 17:14] LABS: Add Urine Microscopic? NO
[2020-11-16 17:19] LABS: Bilirubin Urine Neg (Negative); Blood Urine Neg (Negative); Glucose Urine UA Norm (Normal); Ketones Urine 1+ (Negative); Leukocyte Esterase Urine Negative (Negative); Nitrate Urine Negative (Negative); Protein Urine Neg (Negative); Urine Appearance Clear (CLEAR); Urine Color Yellow (Yellow); Urobilinogen Urine Norm (Negative); pH Urine 5 (5-7)
[2020-11-16] MEDS: acetaminophen 500 mg Tablet 1000 MG PO (20:45)
[2020-11-17] VITALS (17 sets, daily range): BP systolic 106–132; BP diastolic 49–64; PULSE 68–91; RESP 15–20; TEMP 36.6–37.3; O2SAT 90–97
[2020-11-17 02:35] LABS: Basophils % 0.1 %; Eosinophils # 0.2 10^3/uL (0.0-0.8); Eosinophils % 1.5 %; Hematocrit 24.2 % (37.0-47.0); Hemoglobin 7.5 g/dL (11.5-15.3); Lymphocytes # 1.7 10^3/uL (0.8-4.8); Lymphocytes % 17.5 %; Mean Corpuscular Hemoglobin 28.8 pg (28.0-34.0); Mean Corpuscular Volume 93.1 fL (81-99); Mean Platelet Volume 10.4 fL (7.4-10.4); Monocytes # 1.3 10^3/uL (0.2-0.9); Monocytes % 12.8 %; Neutrophils # 6.64 10^3/uL (1.8-7.7); Neutrophils % 67.8 %; Nucleated Red Blood Cells % 0 %; Platelet Count 239 10^3/cmm (130-400); Red Cell Distribution Width 14.8 % (12.1-15.1); White Blood Count 9.8 10^3/uL (4.0-10.0)
[2020-11-17 02:53] LABS: Alanine Aminotransferase 11 U/L (0-33); Albumin Level 2.4 g/dL (3.5-5.2); Alkaline Phosphatase 55 IU/L (35-105); Anion Gap 9.2 (5-19); Aspartate Amino Transferase 24 U/L (0-32); Blood Urea Nitrogen 24 mg/dL (8-23); Calcium 8.1 mg/dL (8.5-10.5); Carbon Dioxide 28 mmol/L (22-29); Chloride 101 mmol/L (98-107); Globulin 2.4 g/dL (1.3-4.6); Glucose 119 mg/dL (65-115); Osmolality Calculated 283 mOsm/kg (285-295); Potassium 4.2 mmol/L (3.5-5.1); Sodium 134 mmol/L (136-145); Total Bilirubin 0.3 mg/dL (0.15-1.2); Total Protein 4.8 g/dL (6.6-8.7)
[2020-11-17] MEDS: morphine ER (12 HR) 30 mg tablet PO ×2 (05:49→17:46)
[2020-11-17] MEDS: acetaminophen 500 mg Tablet 1000 MG PO (05:51)
[2020-11-17] MEDS: sennosides-docusate Tablet 2 TAB PO ×2 (08:53→17:46)
[2020-11-17] MEDS: multivitamin therapeutic Tablet 1 TAB PO (08:53)
[2020-11-17] MEDS: aspirin 325 mg EC Tablet PO (08:53)
[2020-11-17] MEDS: calcium carbonate 500 mg Chew Tablet 1000 MG PO ×2 (08:53→17:46)
[2020-11-17] MEDS: amlodipine 5 mg Tablet PO (08:53)
[2020-11-17] MEDS: ferrous sulfate EC 325 mg Tablet PO (08:53)
[2020-11-17] MEDS: cholecalciferol (vitamin D3) 1,000 unit Tablet 1000 UNIT PO (08:53)
[2020-11-17] MEDS: levothyroxine 75 mcg Tablet PO (08:54)
[2020-11-17] MEDS: duloxetine 60 mg Capsule PO (08:54)
[2020-11-17] MEDS: pantoprazole DR 40 mg Tablet PO ×2 (08:54→17:45)
[2020-11-17] MEDS: iron polysaccharide complex 150 mg Capsule PO ×2 (08:54→17:46)
[2020-11-17] MEDS: mupirocin oint 22 gm 1 APPLIC NASAL ×2 (08:56→17:46)
[2020-11-17] MEDS: chlorhexidine gluconate 0.12% Btl 473 mL 30 ML MUCOUS MEM ×3 (08:56→17:46)
--- NOTE | 2020-11-17 09:30 | P.PN_ITS ---
Subjective Subjective: Interval history: Patient reports feeling well. She denies shortness of breath or chest pain. Her white blood cell count normalized and this appears to be related to surgery. She did not show any evidence of infectious process. She reports that her appetite is good. She had bowel movement right before she got admitted. Reports that it is normal for her to not have bowel movement for several days. Denies any abdominal pain. Patient is on senna Colace standing dose. Reports that her pain is getting better. She is not in pain if she is not moving. Vitals/I&O/Wt Last Vital Signs Temp 98.3 F 11/17/20 07:00 Pulse 82 11/17/20 09:07 Resp 18 11/17/20 09:05 BP 122/64 11/17/20 07:00 Pulse Ox 90 11/17/20 09:05 11/16/20 11/17/20 11/17/20 22:59 06:59 14:59 Intake Total 480 / 480 Output Total 200 / 450 1050 / 1500 Balance -200 / -300 -1050 / -1350 480 / 480 Physical Exam Narrative: EXAM NARRATIVE: Overall decreased air movement but otherwise clear. Heart is regular and abdomen soft and nontender. No lower extremity edema. Urinary Catheter Management^: F: Cath Placed During This Visit: yes, but has since been removed by the nurse Reason for Continuing Indwelling Catheter: Decision to DC Catheter Urinary Catheter Date of Insertion: 11/15/20 Urinary Catheter Time of Insertion: 15:30 Date Urinary Catheter Removed: 11/17/20 Time Urinary Catheter Discontinued: 06:41 Data : 11/17/20 02:21 11/17/20 02:21 A&P Assessment and plan (1) History of total right hip arthroplasty: POD 0 Status: Acute (2) Acute blood loss anemia: anticipated given complexity and length of surgery, receiving transfusion already hemoglobin was 12 a few days ago and has dropped to 9.7 postop Status: Acute (3) COPD (chronic obstructive pulmonary disease): not currently acute, I have not yet been able to discern if she is on oxygen or room air at baseline looks to have some chronic CO2 elevation in the low 30s Status: Chronic Qualifiers: COPD type: emphysema Emphysema type: unspecified Qualified Code(s): J43.9 - Emphysema, unspecified (4) Chronic narcotic use: At baseline prescribed 135 MMEs per day according to current home m edication list Status: Chronic (5) Hypertension: chronically on amlodipine, currently controlled Status: Chronic Qualifiers: Hypertension type: essential hypertension Qualified Code(s): I10 - Essential (primary) hypertension Additional A&P Information PLAN: Continue current monitoring and treatment. If hemoglobin drops below 7 consider giving 1 unit of blood. Continue with iron but will change to every other day to improve absorption. Continue with physical and occupational therapy. Encouraged oral intake. Attestations Medical Necessity Statement*: Patient with hip surgery requires close inpatient monitoring and treatment until deemed safe for discharge. Coding Level of Care Code Acute Auto Emissions Technician for Jennifer Lagos Diagnoses History of total right hip arthroplasty Z96.641 Acute blood loss anemia D62 COPD (chronic obstructive pulmonary disease) J43.9 COPD type: emphysema Emphysema type: unspecified Chronic narcotic use F11.90 Hypertension I10 Hypertension type: essential hypertension
--- NOTE | 2020-11-17 13:29 | P.DS_ITS ---
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 Her procedure is as follows: Right revision total hip arthroplasty with removal of orthopedic hardware utilizing the [place] revision total hip system with a size 54 mm by E alpha code Tritanium cluster hole acetabular shell with 2 screws and a dome hole plug, and MDM cementless liner size 42 mm inner diameter by E alpha code, DBM plus putty with cancellous chips, Tenriism Modular stem system with a size 21 mm diameter by 155 mm length, a size 25 mm +10 height calcar, with a ceramic Biolox femoral head 28 mm outer diameter with +0 mm length, and a MDM insert size 28 mm inner diameter with a size 40 2E alpha code her date of surgery was November 15. She was admitted with a medical consultation secondary to her multiple medical issues. She was followed by the medical service throughout her hospital stay. On the first postoperative day, November 16, the patient was doing well. She was working with physical therapy. Her wound was benign. There was no evidence of infection or drainage. She remained neurologically intact. On the second postoperative day, November 17, the patient's H&H did drop to 7.5 and 24.2. She was given 1 unit of packed red blood cells. She was felt to be stable for discharge back to her facility. She will be admitted to the skilled portion and obtain physical therapy there. She will continue to follow posterior hip precautions and partial weightbearing. Physical Exam Const: COMMON NORMALS: no acute distress, average body habitus, patient oriented x3 and alert GENERAL APPEARANCE: cooperative and comfortable ORIENTATION/CONSCIOUSNESS: Yes awake HENMT: COMMON NORMALS: normocephalic and atraumatic HEAD & SCALP: normocephalic and atraumatic Eye: GENERAL EYE: appearance normal, both eyes and all related structures Chest: COMMONS NORMALS: normal inspection of the chest Resp: COMMON NORMALS: normal respiratory effort EFFORT & INSPECTION: Yes able to speak in complete sentences and Yes symmetric chest movement Extremity: RIGHT LOWER EXTREMITY: Yes hip joint (Wound remains benign. There is no evidence of DVT.) Right hip: Yes inspection (Minimal discomfort to p alpation.), Yes ROM (Not evaluated secondary to surgery.) and Yes neurovascular exam (Intact with no evidence of DVT.) Neuro: COMMON NORMALS: patient oriented x3 SENSORIUM/ORIENTATION: Yes alert Psych: COMMON NORMALS: mental status grossly normal APPEARANCE: Yes grossly normal ATTITUDE: Yes calm and Yes engaged ATTENTION/CONCENTRATION: Yes attention grossly intact Skin: COMMON NORMALS: no rashes or lesions noted GENERAL SKIN EXAM: no rashes or lesions noted Urinary Catheter Management^: F: Cath Placed During This Visit: yes, but has since been removed by the nurse Reason for Continuing Indwelling Catheter: Decision to DC Catheter Urinary Catheter Date of Insertion: 11/15/20 Urinary Catheter Time of Insertion: 15:30 Date Urinary Catheter Removed: 11/17/20 Time Urinary Catheter Discontinued: 06:41 Discharge Data Data Completed and Pending: Completed Studies During Hospitalization Category Date Time Status XR chest 1V redd ble [id number] Routine Exams 11/16/20 10:24 Completed XR hip RT 2-3V wo /w pel* [id number] Rout ine Exams 11/15/20 18:46 Completed XR hip RT 2-3V wo /w pel* [id number] Urge nt Exams 11/15/20 20:59 Completed Pending at discharge Category Date Time Status Complete Blood Co unt w/Auto AM LABS Lab 11/18/20 04:00 Ordered Comprehensive Met abolic Panel AM LA BS Lab 11/18/20 04:00 Ordered Comprehensive Met abolic Panel AM LA BS Lab 11/19/20 04:00 Ordered Leukocyte Reduced RBC Stat Lab 11/15/20 18:19 Results Type and Screen S tat Lab 11/15/20 18:19 Results Pathology: Surgic al [PTH] Routine Pth 11/15/20 20:00 Received Labs from last 24 hours 11/17/20 11/17/20 11/16/20 02:21 02:21 16:23 WBC 9.8 RBC 2.60 L Hgb 7.5 L Hct 24.2 L MCV 93.1 MCH 28.8 MCHC 31.0 RDW 14.8 Plt Count 239 MPV 10.4 Neut % (Auto) 67.8 Lymph % (Auto) 17.5 [place] % (Auto) 12.8 Eos % (Auto) 1.5 Baso % (Auto) 0.1 Neut # (Auto) 6.64 Lymph # (Auto) 1.7 [place] # (Auto) 1.3 H Eos # (Auto) 0.2 Baso # (Auto) 0.0 Nucleated RBC % (a uto) 0 Nucleated RBCs # 0.0 Sodium 134 L Potassium 4.2 Chloride 101 Carbon Dioxide 28 Anion Gap 9.2 BUN 24 H Creatinine 0.7 GFR Calculation Not Reportable Glucose 119 H Calculated Osmolal ity 283 L Calcium 8.1 L Total Bilirubin 0.3 AST 24 ALT 11 Alkaline Phosphata se 55 Total Protein 4.8 L Albumin 2.4 L Globulin 2.4 Urine Color Yellow Urine Appearance Clear Urine pH 5 Ur Specific Gravit y 1.020 Urine Protein Neg Urine Glucose (UA) Norm Urine Ketones 1+ H Urine Blood Neg Urine Nitrate Negative Urine Bilirubin Neg Urine Urobilinogen Norm Ur Leukocyte Marian ase Negative Blood Type Rho(D) Type Antibody Screen Crossmatch 11/15/20 18:19 WBC RBC Hgb Hct MCV MCH MCHC RDW Plt Count MPV Neut % (Auto) Lymph % (Auto) [place] % (Auto) Eos % (Auto) Baso % (Auto) Neut # (Auto) Lymph # (Auto) [place] # (Auto) Eos # (Auto) Baso # (Auto) Nucleated RBC % (a uto) Nucleated RBCs # Sodium Potassium Chloride Carbon Dioxide Anion Gap BUN Creatinine GFR Calculation Glucose Calculated Osmolal ity Calcium Total Bilirubin AST ALT Alkaline Phosphata se Total Protein Albumin Globulin Urine Color Urine Appearance Urine pH Ur Specific Gravit y Urine Protein Urine Glucose (UA) Urine Ketones Urine Blood Urine Nitrate Urine Bilirubin Urine Urobilinogen Ur Leukocyte Marian ase Blood Type O Positive Rho(D) Type Positive Antibody Screen Negative Crossmatch See Detail Vitals: Last Vital Signs Temp 97.9 F 11/17/20 11:00 Pulse 76 11/17/20 11:00 Resp 16 11/17/20 11:00 BP 126/56 11/17/20 11:00 Pulse Ox 92 11/17/20 11:00 Discharge Plan Discharge Patient Disposition: Xfer SNF Condition: Stable Prescriptions: New Lovenox 40 mg/0.4 mL syringe 40 mg SUBCUT DAILY 14 Days Qty: 5.6 RF: 0 Continued omeprazole 20 mg capsule,delayed release(DR/EC) 20 mg PO BID RF: 0 morphine 30 mg capsule, ER multiphase 24 hr 30 mg PO Q24H RF: 0 levothyroxine 75 mcg capsule 75 mcg PO ONCE RF: 0 bisacodyl 10 mg suppository 10 mg [place] DAILY PRN (Reason: constipation) RF: 0 ferrous sulfate [Feosol] 325 mg (65 mg iron) tablet 325 mg PO DAILY RF: 0 albuterol sulfate 0.63 mg/3 mL solution for nebulization 0.63 mg INHALATION Q4H RF: 0 duloxetine 60 mg capsule,delayed release(DR/EC) 60 mg PO DAILY RF: 0 senna 8.6 mg capsule 8.6 mg PO BID PRN (Reason: Pain) RF: 0 morphine [MS Contin] 30 mg tablet extended release 30 mg PO Q12H RF: 0 mecobalamin (vitamin B12) 5,000 mcg tablet,disintegrating See Rx Instructions .ROUTE .COMPLEX RF: 0 hydrocodone-acetaminophen [Vanlue] 7.5-325 mg tablet 1 tab PO Q4H PRN (Reason: Pain) RF: 0 amlodipine 5 mg Tablet 5 mg PO DAILY RF: 0 Spiriva Respimat 1.25 mcg/actuation Mist 2 puff INHALATION DAILY RF: 0 [id number] 50 mcg-75 mcg -100 mg Capsule 1,000 cap PO DAILY RF: 0 Discharge Orders: Discharge Order (Routine); Ordered 11/17/20 Ordered By: Delmy Leal Referrals: Delmy Leal MD [Physician] - 11/30/20 9:45 am Fareed Benavides DO [Primary Care Provider] - 4-7 days Discharge Diet: Advance as tolerated and Usual diet Discharge Activity: Limit activity as instructed, Use walker/crutches as instructed and As per PT/OT instructions Activity Restrictions/Additional Instructions: Touchdown to partial weightbearing right lower extremity. Posterior hip precautions. Use walker as instructed. Please call your doctor or present to emergency department if your condition worsens or you develop diarrhea, lightheadedness, fatigue or see blood in your stool or black stool. Discharge Attestations Time Spent in Discharge Care*: greater than 30 min Specific Discharge Activities: educating patient, discussing with pcp/other providers, discussing with vocational case manager/social workers/dc planners, documenting/other paperwork and evaluating patient/reviewing data Quality Metrics Clinical Quality Measures During this hospital stay, did patient experience: None Coding Level of Care Code Acute Dye Jig Operator for [facility] Fwd Exam Comprehensive Diagnoses History of total right hip arthroplasty Z96.641 Acute blood loss anemia D62 COPD (chronic obstructive pulmonary disease) J43.9 COPD type: emphysema Emphysema type: unspecified Chronic narcotic use F11.90 Hypertension I10 Hypertension type: essential hypertension
[2020-11-17] MEDS: HYDROcodone-acetaminophen 7.5-325 mg Tablet 1 TAB PO (13:43)
[2020-11-17] MEDS: sodium chloride 0.9% (100 ml) 100 ML 50 ML (16:17)
--- NOTE | 2020-11-17 23:58 | PC.NURSE ---
Med List Discrepancy [facility] called at this time, Cherelle. She tells me that patient was discharged back to their facility and was told that only new medication is lovenox. Per our discharge orders, this is accurate, everything else is continued. She tells me that there are several discrepancies, continued medications that patient was not previously on, and changes in dosages/frequencies on other medications. I pulled patient's paper chart and reviewed the med rec that was sent with patient, compared to med rec in computer and there were discrepancies. Notified Dr. Chavez by phone, telephone orders given to continue all medications as previously ordered at the facility, with the additional new order of lovenox. Will correct med rec in computer, ask Dr. Chavez to adjust the discharge order in the morning, and will have fax discharge orders to [facility] once corrected.
== END 2020-11-17 18:10 | disposition skilled nursing facility (03) | DRG 470 ==
LOC: MEDSURG 21:10
PROVIDERS: Anesthesiology; Internal Medicine; Admitting Provider Specialist; PCP Electrodiagnostic Medicine; Visit Provider Specialist
PROC: 0SR903Z Replacement of Right Hip Joint with Ceramic Synthetic Substitute, Open Approach (ICD-10-PCS; CPT 27130; principal; 2020-11-15 12:55)
PROC: 0SR903Z Replacement of Right Hip Joint with Ceramic Synthetic Substitute, Open Approach (ICD-10-PCS; CPT 20680; 2020-11-15 12:55)
DX: T84.124A Displacement of internal fixation device of right femur, initial encounter (principal); M87.351 Other secondary osteonecrosis, right femur; D62 Acute posthemorrhagic anemia; Y79.3 Surgical instruments, materials and orthopedic devices (including sutures) associated with adverse incidents; T84.84XA Pain due to internal orthopedic prosthetic devices, implants and grafts, initial encounter; Z79.51 Long term (current) use of inhaled steroids; Z79.891 Long term (current) use of opiate analgesic; F17.210 Nicotine dependence, cigarettes, uncomplicated; G89.29 Other chronic pain; M54.9 Dorsalgia, unspecified; M19.90 Unspecified osteoarthritis, unspecified site; J43.9 Emphysema, unspecified; F32.9 Major depressive disorder, single episode, unspecified; K44.9 Diaphragmatic hernia without obstruction or gangrene; K21.9 Gastro-esophageal reflux disease without esophagitis; I10 Essential (primary) hypertension; E03.9 Hypothyroidism, unspecified; Z96.642 Presence of left artificial hip joint; Z96.652 Presence of left artificial knee joint; R91.8 Other nonspecific abnormal finding of lung field
CPT/HCPCS: 12345; 36415; 36430; 51702; 71045; 73501; 73502; 80048; 80053; 81001; 81003; 85025; 86850; 86900; 86920; 88304; 93005; 94640; 96365; 97110; 97162; 97166; 97530; C1713; C1776; J0131; J0690; J2250; J2704; J3010; J3370; J7030; J7050; J7611; P9016; P9040

== ENCOUNTER → 2021-01-25 11:15 | Outpatient (BNVA) | payer MEDICARE, MEDICAID, SELFPAY | PROVIDERS: PCP Electrodiagnostic Medicine; Visit Provider Specialist | DX: Z09 Encounter for follow-up examination after completed treatment for conditions other than malignant neoplasm (principal); M12.551 Traumatic arthropathy, right hip | CPT/HCPCS: 73502 ==

== ENCOUNTER 2021-03-10 18:05 | Outpatient (CLI) | payer MEDICARE, MEDICAID, SELFPAY ==
[2021-03-10 18:24] LABS: Add Urine Microscopic? NO; Charge for UA Resulting for Rev
[2021-03-10 18:56] LABS: Basophils % 0.3 %; Eosinophils % 0.3 %; Hematocrit 34.3 % (37.0-47.0); Hemoglobin 10.8 g/dL (11.5-15.3); Lymphocytes # 1.4 10^3/uL (0.8-4.8); Mean Corpuscular HGB Conc 31.5 g/dL (30.0-36.0); Mean Corpuscular Hemoglobin 27.3 pg (28.0-34.0); Mean Corpuscular Volume 86.6 fL (81-99); Mean Platelet Volume 9.9 fL (7.4-10.4); Monocytes # 0.9 10^3/uL (0.2-0.9); Neutrophils # 9.26 10^3/uL (1.8-7.7); Neutrophils % 79.1 %; Nucleated Red Blood Cells % 0 %; Platelet Count 405 10^3/cmm (130-400); Red Blood Count 3.96 10^6/uL (4.1-5.3); Red Cell Distribution Width 16.3 % (12.1-15.1); White Blood Count 11.7 10^3/uL (4.0-10.0)
[2021-03-10 19:24] LABS: Bilirubin Urine Neg (Negative); Blood Urine Neg (Negative); Glucose Urine UA Norm (Normal); Ketones Urine 1+ (Negative); Leukocyte Esterase Urine Negative (Negative); Nitrate Urine Negative (Negative); Protein Urine Neg (Negative); Urine Appearance Clear (CLEAR); Urine Color Yellow (Yellow); Urobilinogen Urine Norm (Negative); pH Urine 6.5 (5-7)
[2021-03-10 20:37] LABS: Alanine Aminotransferase 6 U/L (0-33); Albumin Level 3.4 g/dL (3.5-5.2); Alkaline Phosphatase 81 IU/L (35-105); Anion Gap 13.8 (5-19); Aspartate Amino Transferase 16 U/L (0-32); Blood Urea Nitrogen 10 mg/dL (8-23); Calcium 8.2 mg/dL (8.5-10.5); Carbon Dioxide 31 mmol/L (22-29); Chloride 91 mmol/L (98-107); Globulin 3.4 g/dL (1.3-4.6); Glucose 101 mg/dL (65-115); NT Pro B Type Natriuretic Pept 439 pg/mL (0-450); Osmolality Calculated 273 mOsm/kg (285-295); Potassium 3.8 mmol/L (3.5-5.1); Sodium 132 mmol/L (136-145); Total Bilirubin 0.3 mg/dL (0.15-1.2); Total Protein 6.8 g/dL (6.6-8.7)
== END 2021-03-10 18:06 | disposition home or self-care (01) ==
PROVIDERS: PCP Electrodiagnostic Medicine; Visit Provider Nurse Practitioner Family
DX: Z01.89 Encounter for other specified special examinations (principal)
CPT/HCPCS: 80053; 81003; 83880; 85025

== ENCOUNTER → 2021-04-04 10:18 | Outpatient (BNVA) | payer MEDICARE, MEDICAID, SELFPAY | PROVIDERS: PCP Electrodiagnostic Medicine; Visit Provider Anesthesiology | DX: G89.29 Other chronic pain (principal); M25.551 Pain in right hip; Z96.649 Presence of unspecified artificial hip joint; M25.511 Pain in right shoulder; Z98.890 Other specified postprocedural states; F17.210 Nicotine dependence, cigarettes, uncomplicated; Z79.891 Long term (current) use of opiate analgesic | CPT/HCPCS: 99204 ==

== ENCOUNTER → 2021-05-31 11:36 | Outpatient (BNVA) | payer MEDICARE, MEDICAID, SELFPAY | PROVIDERS: PCP Electrodiagnostic Medicine; Visit Provider Specialist | DX: Z09 Encounter for follow-up examination after completed treatment for conditions other than malignant neoplasm (principal); M12.551 Traumatic arthropathy, right hip; G89.29 Other chronic pain; M25.551 Pain in right hip; Z96.641 Presence of right artificial hip joint | CPT/HCPCS: 73502 ==

== ENCOUNTER 2022-03-10 11:32 | Outpatient (CLI) | payer MEDICARE, MEDICAID, SELFPAY ==
--- NOTE | 2022-03-10 11:40 | MR_ITS ---
WS: [id number] MRI LEFT SHOULDER HISTORY: LEFT SHOULDER PAIN COMPARISON: Radiographs 11/12/2016 TECHNIQUE: Multiplanar sequences of the shoulder joint are submitted. This study is extremely limited by patient motion despite numerous attempts at achieving adequate lourdes ges. Patient was unable to remain still for the examination. Moderate AC joint hypertrophy with soft tissue and osteophyte encroachment upon the supraspinatus ten don. Small amount of fluid in the subacromial and subdeltoid bursa. Biceps tendon remains the bicipit al groove but there is increased fluid within the biceps tendon sheath. No os acromion. Severe glenohumeral joint narrowing with remodeling of the glenoid. Complete loss of the joint space. Large osteophyte surrounding the humeral head. Supraspinatus, infraspinatus and subscapularis muscle atrophy. The distal supraspinatus and infraspinatus tendons are poorly visualized. Suspect high-grad e tears at the insertion site. There is fluid extending along the tendons of the infraspinatus and kearns praspinatus muscles. Subscapularis tendon is displaced by osteophytes at the humeral head and glenoid . The distal tendon is not well identified. There is a large joint effusion surrounding the humeral h ead with numerous loose bodies and synovial thickening. Abnormal labrum throughout. MR/MR shoulder LT wo con* [id number] IMPRESSION: 1. Extremely limited evaluation of the rotator cuff due to patient motion. Pat ient was unable to remain still secondary to pain. 2. Severe glenohumeral joint arthritis with large osteophytes and joint effusi on with loose bodies and synovial thickening. 3. Diffuse abnormal labrum. 4. Atrophy supraspinatus and infraspinatus muscles and to a lesser extent the subscapularis. Although the distal tendons are difficult to visualize there are secondary findings suggesting at least high-grade tears of the supraspinatus a nd infraspinatus tendons. Subscapularis tendon is being displaced by large oste ophytes. 5. Moderate AC joint arthritis. 6. Biceps tenosynovitis.
== END 2022-03-10 11:33 | disposition home or self-care (01) ==
PROVIDERS: PCP Electrodiagnostic Medicine; Visit Provider Nurse Practitioner Family
DX: M25.512 Pain in left shoulder (principal); M19.012 Primary osteoarthritis, left shoulder; M65.812 Other synovitis and tenosynovitis, left shoulder; M25.412 Effusion, left shoulder
CPT/HCPCS: 73221

== ENCOUNTER 2022-03-28 17:26 | Emergency (ER) | payer MEDICARE, MEDICAID, SELFPAY ==
--- NOTE | 2022-03-28 17:44 | XRR_ITS ---
PROCEDURE INFORMATION: Exam: XR Left Hip Exam date and time: 03/28/2022 6:52 PM Age: 86 years old Clinical indication: Hip pain; Left hip; Prior surgery; Surgery date: 6+ months; Surgery type: Lt hip TECHNIQUE: Imaging protocol: Radiologic exam of the Left hip. Views: 2 or 3 views hip with pelvis when performed. COMPARISON: No relevant prior studies available. FINDINGS: Bones/joints: Left inferior and possibly superior pubic rami fractures suspected, decreased bone mineral density limits evaluation, CT scan could further evaluate these. Right hip arthroplasty in place. Left femoral surgical marilynn seen in place. Soft tissues: Unremarkable. XR/XR hip LT 2-3V wo/w pel* [id number] IMPRESSION: 1. Left inferior and possibly superior pubic rami fractures suspected, decreased bone mineral density limits evaluation, CT scan could further evaluate these. 2. Right hip arthroplasty in place. 3. Left femoral surgical marilynn seen in place.
[2022-03-28 18:11] VITALS: BP 145/75; PULSE 64; RESP 16; TEMP 37.2; O2SAT 94; BMI 17.8
--- NOTE | 2022-03-28 19:04 | CTR_ITS ---
PROCEDURE INFORMATION: Exam: CT Head Without Contrast Exam date and time: 03/28/2022 7:45 PM Age: 86 years old Clinical indication: Injury or trauma; Fall; Blunt trauma (contusions or hematomas); Patient HX: Patient fell at skilled nursing and hit head on floor. C/O pain. Not on anticoagulants. TECHNIQUE: Imaging protocol: Computed tomography of the head without contrast. Radiation optimization: All CT scans at this facility use at least one of these dose optimization techniques: automated exposure control; mA and/or kV adjustment per patient size (includes targeted exams where dose is matched to clinical indication); or iterative reconstruction. COMPARISON: CT head wo con* [id number] 03/23/2019 10:46 AM RADIATION DOSE METRICS: Total DLP (mGy-cm): 1742.61 FINDINGS: Brain: Moderate diffuse white matter disease likely reflecting chronic microvascular ischemic changes. Cerebral ventricles: No ventriculomegaly. Paranasal sinuses: Visualized sinuses are unremarkable. No fluid levels. Mastoid air cells: Visualized mastoid air cells are well aerated. Bones/joints: Unremarkable. No acute fracture. Soft tissues: Unremarkable. CT/CT head wo con* [id number] IMPRESSION: Negative for intracranial hemorrhage or mass effect.
--- NOTE | 2022-03-28 19:14 | ED_ITS ---
HPI - Fall General: Chief Complaint: Fall Stated Complaint: L HIP PAIN, POST FALL Time Seen by Provider: 03/28/22 19:04 Source: patient Mode of arrival: ambulatory Limitations: no limitations History of Present Illness: 86-year-old female who had a fall at skilled nursing today just prior to arrival. She states she landed on her left side has some slight left hip pain and struck her head. She denies any loss conscious does have a mild headache. She is on any blood thinners denies any neck pain. Patient is able to stand but has some pain in that hip. She had previous hip surgery on bilateral hips. Associated symptoms-after fall: Reports headache(s); Denies abdominal pain, chest pain or neck pain Review of Systems Const: Denies: fever(s), chills, body aches or change in appetite Eyes: Denies: blurry vision or eye discomfort ENMT: Denies: throat pain or dental pain Card: Denies: chest pain Resp: Denies: dyspnea GI: Denies: abdominal pain, nausea, vomiting or diarrhea : Denies: dysuria Musc: Reports: extremity pain; Denies: neck pain or back pain Skin/Breast: Denies: rash Neuro: Reports: headache(s) Psych: Denies: depression Marko/Lymph: Denies: easy bruising All/Imm: Denies: urticaria PFSH ED PFSH: Medical History 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 Bilateral Chronic right shoulder pain COPD (chronic obstructive pulmonary disease) Depression Encounter for narcotic contract discussion Bilateral Hiatal hernia with gastroesophageal reflux History of cardiac arrhythmia unclear details History of PFTs (~2017) moderate obstructive defect, normal lung volumes, reduced diffusion capacity, no significant bronchodilator response History of upper gastrointestinal bleeding Hypertension Hypothyroidism Normal cardiac stress test (~2015) Osteoarthritis Pulmonary nodule 2.1 cm left lower lobe (minimal metabolic activity) and 5mm right upper lobe in 2017 PET Scan; PET scan request made in 07/2020 but unclear if has been done as of 11/15/20 Surgical History H/O: hysterectomy History of appendectomy History of back surgery x2 History of hip surgery left hip fracture repaired with gamma nail, subsequently removed History of hip surgery (Unknown) Bilateral History of left knee surgery left total knee arthroplasty 2009, subsequent fall with fracture requiring internal fixation 2013 History of open reduction and internal fixation (ORIF) procedure (~03/2019) right hip History of total left hip arthroplasty History of total right hip arthroplasty (11/15/20) Revision Right Total Hip Arthroplasty, with removal of hardware from prior ORIF Family History Other CAD (coronary artery disease) Social History Smoking and tobacco status: current every day smoker Alcohol intake: never History of recent travel: No Physical Exam Const: COMMON NORMALS: no acute distress, patient oriented x3 and healthy appearing HENMT: COMMON NORMALS: normocephalic and atraumatic HEAD & SCALP: normocephalic and atraumatic Eye: COMMON NORMALS: Equal, round and reactive pupils present and EOMs intact bilaterally PUPIL: Yes Equal, round and reactive pupils present Neck/C-Spine: COMMON NORMALS: full ROM and supple Chest: COMMONS NORMALS: normal inspection of the chest and normal palpation of entire chest wall Resp: COMMON NORMALS: normal respiratory effort, No retractions, No use of accessory muscles and clear to auscultation bilaterally AUSCULTATION: clear to auscultation bilaterally Cardio: COMMON NORMALS: regular rate, regular rhythm and No murmurs present (C ardio) RATE: regular rate RHYTHM: regular rhythm GI: COMMON NORMALS: Normal to inspection, nondistended, normoactive bowel sounds present, Soft to palpation, non-tender and no masses PALPATION: Yes Soft to palpation Extremity: COMMON NORMALS: full ROM NARRATIVE EXTREMITY EXAM: Slight tenderness over left hip no obvious deformity has full range of motion Neuro: COMMON NORMALS: patient oriented x3, moves all extremities and no focal motor deficits Psych: COMMON NORMALS: mental status grossly normal, Normal thought process present and cooperative THOUGHT PROCESS: Normal thought process present Skin: COMMON NORMALS: no rashes or lesions noted and no wounds GENERAL SKIN EXAM: no rashes or lesions noted Course Vital Signs: Vital signs: Vital Signs Temperature 98.9 F 03/28/22 18:11 Pulse Rate 64 03/28/22 18:11 Respiratory Rate 16 03/28/22 18:11 Blood Pressure 145/75 03/28/22 18:11 Pulse Oximetry 94 03/28/22 18:11 MDM - Fall Medical Decision Making Patient presents with a rami fracture she has no signs of a hip fracture. Patient's head CT is normal. Patient's pain is controlled here she is stable for discharge back to skilled nursing we will get her follow-up with Ortho. Lab Data Radiology Impressions Hip/Pelvis X-Ray 03/28/22 17:44 IMPRESSION: 1. Left inferior and possibly superior pubic rami fractures suspected, decreased bone mineral density limits evaluation, CT scan could further evaluate these. 2. Right hip arthroplasty in place. 3. Left femoral surgical marilynn seen in place. Head CT 03/28/22 19:04 IMPRESSION: Negative for intracranial hemorrhage or mass effect. Discharge Plan Discharge Patient Disposition: Home Clinical Impression: Closed fracture of right inferior pubic ramus Fall Qualifiers: Encounter type: initial encounter Qualified Code(s): W19.XXXA - Unspecified fall, initial encounter Condition: Stable Prescriptions: No Action bisacodyl 10 mg suppository 10 mg [place] DAILY PRN (Reason: constipation) 0RF senna 8.6 mg capsule 8.6 mg PO BEDTIME PRN (Reason: Constipation) 0RF albuterol sulfate 0.63 mg/3 mL Solution For Nebulization 0.083 mg INHALATION Q4H 0RF acetaminophen 500 mg Tablet 1,000 mg PO Q4H PRN (Reason: Pain, Mild) 0RF magnesium hydroxide [Milk of Magnesia] 400 mg/5 mL Suspension 30 ml PO DAILY PRN (Reason: Constipation) 0RF pantoprazole 40 mg Tablet,Delayed Release (Dr/Ec) 40 mg PO DAILY 0RF polyethylene glycol 3350 17 gram/dose Powder 17 g PO BID PRN (Reason: Constipation) 0RF ondansetron HCl 4 mg tablet 4 mg PO Q6H PRN (Reason: Nausea) 0RF Fleet Enema 19-7 gram/118 mL Enema 118 ml LA DAILY PRN (Reason: Constipation) 0RF albuterol sulfate 90 mcg/actuation HFA aerosol inhaler 2 puff INHALATION Q4H PRN (Reason: Shortness Of Breath) 0RF cyclobenzaprine 5 mg tablet 5 mg PO BID PRN (Reason: Pain) 0RF duloxetine 30 mg capsule,delayed release(DR/EC) 30 mg PO DAILY 0RF Rx Instructions: TAKE WITH 60MG TAB TP =90MG duloxetine 60 mg capsule,delayed release(DR/EC) 60 mg PO DAILY 0RF Rx Instructions: TAKE WITH 30MG TAB TO =90MG DAILY Chantix 1 mg Tablet 1 mg PO BID 0RF Combivent Respimat 20-100 mcg/actuation mist 1 puff INHALATION BID 0RF OxyContin 20 mg tablet,oral only,ext.rel.12 hr 20 mg PO BID PRN (Reason: Pain) 0RF amlodipine 5 mg tablet 5 mg PO DAILY 0RF Discharge Orders: Discharge ED (Routine); Ordered 03/28/22 Ordered By: Steph Meyer Referrals: Fareed Benavides, [Primary Care Provider] - Discharge Diet: Advance as tolerated Discharge Activity: Resume usual activity Patient Instructions: Pelvic Fracture (ED), Fall Prevention (ED) Coding Level of Care Code ED Compliance Analyst for [facility] Exam Comprehensive
[2022-03-28 22:48] VITALS: PULSE 65; RESP 22; O2SAT 91
--- NOTE | 2022-03-29 09:38 | PC.SOCIAL ---
Addendum entered by Sienna Mcmanus 04/20/22 16:40: Patient had an appointment scheduled with ortho - appointment was cancelled. Original Note: Dr. Jones Follow-Up Message request sent to ortho for follow up appointment. Office will contact patient with appointment date/time.
== END 2022-03-28 22:49 | disposition home or self-care (01) ==
PROVIDERS: Emergency Provider Emergency Medicine; PCP Electrodiagnostic Medicine
DX: S32.592A Other specified fracture of left pubis, initial encounter for closed fracture (principal); W19.XXXA Unspecified fall, initial encounter; Y92.129 Unspecified place in nursing home as the place of occurrence of the external cause; J44.9 Chronic obstructive pulmonary disease, unspecified; I10 Essential (primary) hypertension; Z96.643 Presence of artificial hip joint, bilateral; F17.210 Nicotine dependence, cigarettes, uncomplicated
CPT/HCPCS: 70450; 73502; 99283

== ENCOUNTER 2022-06-12 11:18 | Emergency (ER) | payer MEDICARE, MEDICAID, SELFPAY ==
[2022-06-12] VITALS (10 sets, daily range): BP systolic 142–166; BP diastolic 71–80; PULSE 63–73; RESP 14–24; TEMP 36.6–37.3; O2SAT 91–96
--- NOTE | 2022-06-12 11:23 | ECG_ITS ---
[facility] Test Date: 2022-06-12 Pat Name: Elizabeth Rogers Department: Room: Gender: Female Jacket Preparer: : 1935 Requested By: Carole Siddiqui Order Number: [id number] Ernestina MD: Mariana Pillai M.D. Measurements Intervals [place] Rate: 63 P: 87 IN: 224 QRS: 53 QRSD: 100 T: 85 QT: 415 QTc: 426 Interpretive Statements SINUS RHYTHM WITH FIRST DEGREE AV BLOCK NONSPECIFIC T-WAVE ABNORMALITY Compared to ECG 11/11/2020 09:56:11 First degree AV block now present T-wave abnormality now present Junctional rhythm no longer present Electronically Signed On 06-12-2022 16:33:27 CDT by Mariana Pillai M.D. [id number]
--- NOTE | 2022-06-12 11:23 | XRR_ITS ---
PROCEDURE INFORMATION: Exam: XR Chest Exam date and time: 06/12/2022 11:42 AM Age: 86 years old Clinical indication: Dyspnea TECHNIQUE: Imaging protocol: Radiologic exam of the chest. Views: 1 view. COMPARISON: CR XR chest 1V portable [id number] 11/16/2020 10:36 AM FINDINGS: Lungs: Scattered interstitial fibrotic changes are present with overinflation of the lungs consistent with pulmonary emphysema. Pleural spaces: Unremarkable. No pleural effusion. No pneumothorax. Heart/Mediastinum: The cardiac silhouette is enlarged. There is a large hiatal hernia with an air-fluid level. There is calcification of the aorta. Bones/joints: Prominent degenerative changes are present in both shoulders. XR/XR chest 1V portable [id number] IMPRESSION: 1. Cardiomegaly. 2. Large hiatal hernia. 3. Pulmonary emphysema and fibrosis. 4. No acute abnormality.
--- NOTE | 2022-06-12 11:26 | W.ED.GENADLT ---
HPI - General Adult General: Chief complaint: Shortness of Breath/Dyspnea Stated complaint: respiratory distress Time Seen by Provider: 06/12/22 11:19 History of Present Illness: 86F w/ hx of DNR on PRN oxygen, COPD, recurrent pneumonia, HTN presents emergency room for onset of dyspnea and low oxygen reading since earlier today. Per nursing staff at [facility], patient was noted to be satting at 85% on RA with increased shortness of breath with decreased appetite since this morning. Patient was last seen normal yesterday. Patient was afebrile. Patient uses oxygen as an needed at the halfway. Because patient has a history of recurrent pneumonia, EMS was called patient was brought to the emergency room for further evaluation. Arrival, patient is AAOx3, answering all my questions. Patient denies nausea/vomiting, fever/chill, chest pain, shortness of breath, abdominal pain, dysuria/hematuria/polyuria, diarrhea/melena/hematochezia. Onset: earlier today Duration:ongoing Location:home Severity:mild/moderate Associated symptoms: Reports dyspnea; Deny chest pain, nausea, rash, palpitations or vomiting Review of Systems Const: Denies: fever(s) or chills Eyes: Denies: change in vision ENMT: Denies: mouth pain Card: Denies: chest pain or palpitations Resp: Reports: dyspnea; Denies: non-productive cough GI: Denies: abdominal pain, nausea, vomiting or diarrhea : Denies: dysuria Musc: Denies: extremity pain Skin/Breast: Denies: rash or new lesions Neuro: Denies: weakness in extremities Psych: Reports: other (Normal mood) Marko/Lymph: Denies: easy bruising PFS ED PFSH: Medical History 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 Chronic right shoulder pain COPD (chronic obstructive pulmonary disease) Depression Encounter for narcotic contract discussion Bilateral Hiatal hernia with gastroesophageal reflux History of cardiac arrhythmia unclear details History of PFTs (~2016) moderate obstructive defect, normal lung volumes, reduced diffusion capacity, no significant bronchodilator response History of upper gastrointestinal bleeding Hypertension Hypothyroidism Normal cardiac stress test (~2015) Osteoarthritis Pulmonary nodule 2.1 cm left lower lobe (minimal metabolic activity) and 5mm right upper lobe in 2017 PET Scan; PET scan request made in 07/2020 but unclear if has been done as of 11/15/20 Surgical History H/O: hysterectomy History of appendectomy History of back surgery x2 History of hip surgery left hip fracture repaired with gamma nail, subsequently removed History of hip surgery (Unknown) Bilateral History of left knee surgery left total knee arthroplasty 2009, subsequent fall with fracture requiring internal fixation 2013 History of open reduction and internal fixation (ORIF) procedure (~03/2019) right hip History of total left hip arthroplasty History of total right hip arthroplasty (11/15/20) Revision Right Total Hip Arthroplasty, with removal of hardware from prior ORIF Family History Other CAD (coronary artery disease) Social History Smoking and tobacco status: current every day smoker Alcohol intake: never History of recent travel: No Physical Exam Const: COMMON NORMALS: alert HENMT: COMMON NORMALS: atraumatic HEAD & SCALP: atraumatic MOUTH: moist mucous membranes not abnormal Eye: COMMON NORMALS: EOMs intact bilaterally and conjunctivae normal CONJUNCTIVA: Yes conjunctivae normal Neck/C-Spine: COMMON NORMALS: full ROM and supple Resp: COMMON NORMALS: normal respiratory effort and clear to auscultation bilaterally AUSCULTATION: clear to auscultation bilaterally Cardio: COMMON NORMALS: regular rate RATE: regular rate GI: COMMON NORMALS: Soft to palpation and non-tender PALPATION: Yes Soft to palpation Extremity: COMMON NORMALS: full ROM Neuro: SENSORIUM/ORIENTATION: Yes alert MOTOR EXAM: No Abnormal motor strength present and Other motor observations present (no focal motor deficits) Psych: COMMON NORMALS: speech normal SPEECH: Yes normal speech MOOD & AFFECT: Yes euthymic mood Course Vital Signs: Vital signs: Vital Signs Temperature 97.9 F 06/12/22 11:18 Pulse Rate 66 06/12/22 13:21 Respiratory Rate 17 06/12/22 13:12 Blood Pressure 166/71 06/12/22 11:28 Pulse Oximetry 96 06/12/22 13:12 Oxygen Delivery Me thod 06/12/22 13:12 Oxygen Flow Rate 3 06/12/22 13:12 MDM - General Adult Medical Decision Making 86F w/ hx of DNR on PRN oxygen, COPD, recurrent pneumonia, HTN presents emergency room for onset of dyspnea and low oxygen reading since earlier today. On physical exam, patient is hemodynamically stable. Patient has clear lung sounds bilaterally. Patient appears to be comfortable resting satting greater than 95% on 2 L of oxygen for comfort. Patient has no increased work of breathing. No signs of oral airway compromise. Patient is noted to have white count 9.6 today. Sodium 134. BNP of 1745 today. X-ray chest appears to be clear. Patient received 2 trace movements reports feeling symptomatically improved. Patient is COVID-negative. Troponin x2 with delta less than 5. EKG is nonischemic. Patient has no signs of volume overload. At the present time, do not suspect ACS, unstable angina, CHF exacerbation, or acute no known pneumonia. Patient continues to be satting well while observed in the emergency room. Discussed plan with patient and her family who would like her to go back to the halfway. Rx: albuterol PRN for dyspnea Disposition: Discharge. Patient counseled regarding diagnostic impression, treatment plan. Patient given ED strict return precautions to return for continuation, worsening, or development of new symptoms. Instructed to f/u w/ PCP regarding symptoms today. Patient verbalized understanding. Lab Data : 06/12/22 11:15 06/12/22 13:10 Radiology Impressions Chest X-Ray 06/12/22 11:23 IMPRESSION: 1. Cardiomegaly. 2. Large hiatal hernia. 3. Pulmonary emphysema and fibrosis. 4. No acute abnormality. Laboratory Results WBC 9.6 10^3/uL (4.0-10.0) 06/12/22 11:15 RBC 4.03 10^6/uL (4.1-5.3) L 06/12/22 11:15 Hgb 12.2 g/dL (11.5-15.3) 06/12/22 11:15 Hct 38.3 % (37.0-47.0) 06/12/22 11:15 MCV 95.0 fl (81-99) 06/12/22 11:15 MCH 30.3 pg (28.0-34.0) 06/12/22 11:15 MCHC 31.9 g/dL (30.0-36.0) 06/12/22 11:15 RDW 12.8 % (12.1-15.1) 06/12/22 11:15 Plt Count 315 10^3/cmm (130-400) 06/12/22 11:15 MPV 10.0 fL (7.4-10.4) 06/12/22 11:15 Neut % (Auto) 73.4 % 06/12/22 11:15 Lymph % (Auto) 15.3 % 06/12/22 11:15 [place] % (Auto) 8.3 % 06/12/22 11:15 Eos % (Auto) 2.5 % 06/12/22 11:15 Baso % (Auto) 0.2 % 06/12/22 11:15 Neut # (Auto) 7.06 10^3/uL (1.8-7.7) 06/12/22 11:15 Lymph # (Auto) 1.5 10^3/uL (0.8-4.8) 06/12/22 11:15 [place] # (Auto) 0.8 10^3/uL (0.2-0.9) 06/12/22 11:15 Eos # (Auto) 0.2 10^3/uL (0.0-0.8) 06/12/22 11:15 Baso # (Auto) 0.0 10^3/uL (0.0-0.1) 06/12/22 11:15 Nucleated RBC % (auto) 0 % 06/12/22 11:15 Nucleated RBCs # 0.0 /100WBC 06/12/22 11:15 Sodium 134 mmol/L (136-145) L 06/12/22 13:10 Potassium 4.7 mmol/L (3.5-5.1) 06/12/22 13:10 Chloride 97 mmol/L (98-107) L 06/12/22 13:10 Carbon Dioxide 28 mmol/L (22-29) 06/12/22 13:10 Anion Gap 13.7 (5-19) 06/12/22 13:10 BUN 11 mg/dL (8-23) 06/12/22 13:10 Creatinine 0.6 mg/dL (0.5-0.9) 06/12/22 13:10 GFR Calculation Not Reportable 06/12/22 13:10 Glucose 104 mg/dL (65-115) 06/12/22 13:10 Calculated Osmolality 278 mOsm/kg (285-295) L 06/12/22 13:10 Calcium 8.8 mg/dL (8.5-10.5) 06/12/22 13:10 Troponin T Baseline 12 ng/L (0-10) H 06/12/22 13:10 C-Reactive Protein 20.0 mg/L (0.0-4.9) H 06/12/22 11:15 NT-Pro-B Natriuret Pep 1745 pg/mL (0-450) H 06/12/22 11:15 Procalcitonin 0.04 ng/mL (0-0.5) 06/12/22 11:15 TSH 2.59 uIU/mL (0.27-4.20) 06/12/22 11:15 Free T4 0.81 ng/dL (0.82-1.77) L 06/12/22 11:15 Coronavirus 229E (PCR) Not detected (NOT DETECT) 06/12/22 11:15 Influenza Type A Ag Negative (Negative) 06/12/22 11:15 Influenza Type B Ag Negative (Negative) 06/12/22 11:15 SARS-CoV-2 (PCR) Not detected (NOT DETECT) 06/12/22 11:15 Imaging Data Other Imaging: Radiologist's impression: [address] [address] XRay Report Signed Patient: Elizabeth Rogers Unit #: [id number] : 1935 Age/Sex: 86 / F ADM Date: 06/12/22 Loc: ER Room/Bed: Attending Dr: Ordering Provider/Ordering MD: Carole Siddiqui MD Date of Service: 06/12/22 Procedure(s): XR chest 1V portable [id number] Accession Number(s): [id number] Report Number: [id number] PROCEDURE INFORMATION: Exam: XR Chest Exam date and time: 06/12/2022 11:42 AM Age: 86 years old Clinical indication: Dyspnea TECHNIQUE: Imaging protocol: Radiologic exam of the chest. Views: 1 view. COMPARISON: CR XR chest 1V portable [id number] 11/16/2020 10:36 AM FINDINGS: Lungs: Scattered interstitial fibrotic changes are present with overinflation of the lungs consistent with pulmonary emphysema. Pleural spaces: Unremarkable. No pleural effusion. No pneumothorax. Heart/Mediastinum: The cardiac silhouette is enlarged. There is a large hiatal hernia with an air-fluid level. There is calcification of the aorta. Bones/joints: Prominent degenerative changes are present in both shoulders. XR/XR chest 1V portable [id number] IMPRESSION: 1. Cardiomegaly. 2. Large hiatal hernia. 3. Pulmonary emphysema and fibrosis. 4. No acute abnormality. ? Dictated By: Collin Sanabria Signed By: Collin Sanabria Signed Date/Time: 06/12/22 1220 DD/ 1142 Discharge Plan Discharge Patient Disposition: Admitted As Inpatient Clinical Impression: Dyspnea Condition: Stable Coding Level of Care Code ED Technical Support Agent for Jesusg Fwd Exam Comprehensive
[2022-06-12 11:42] LABS: Basophils % 0.2 %; Eosinophils # 0.2 10^3/uL (0.0-0.8); Eosinophils % 2.5 %; Hematocrit 38.3 % (37.0-47.0); Hemoglobin 12.2 g/dL (11.5-15.3); Lymphocytes # 1.5 10^3/uL (0.8-4.8); Lymphocytes % 15.3 %; Mean Corpuscular HGB Conc 31.9 g/dL (30.0-36.0); Mean Corpuscular Hemoglobin 30.3 pg (28.0-34.0); Monocytes # 0.8 10^3/uL (0.2-0.9); Monocytes % 8.3 %; Neutrophils # 7.06 10^3/uL (1.8-7.7); Neutrophils % 73.4 %; Nucleated Red Blood Cells % 0 %; Platelet Count 315 10^3/cmm (130-400); Red Blood Count 4.03 10^6/uL (4.1-5.3); Red Cell Distribution Width 12.8 % (12.1-15.1); White Blood Count 9.6 10^3/uL (4.0-10.0)
[2022-06-12 12:11] LABS: Influenza A by IFA Negative (Negative); Influenza B by IFA Negative (Negative)
[2022-06-12 12:20] LABS: Free T4 Free Thyroxine 0.81 ng/dL (0.82-1.77); NT Pro B Type Natriuretic Pept 1745 pg/mL (0-450); Procalcitonin 0.04 ng/mL (0-0.5); Thyroid Stimulating Hormone 2.59 uIU/mL (0.27-4.20)
[2022-06-12] MEDS: ipratropium-albuterol 3 mL Neb INHALATION ×6 (13:10→13:12)
--- NOTE | 2022-06-12 13:18 | ECG_ITS ---
[facility] Test Date: 2022-06-12 Pat Name: Elizabeth Rogers Department: Room: Gender: Female Front End Engineer: : 1935 Requested By: Carole Siddiqui Order Number: [id number] Ernestina MD: Mariana Pillai M.D. Measurements Intervals [place] Rate: 60 P: 82 AL: 250 QRS: 43 QRSD: 92 T: 84 QT: 415 QTc: 417 Interpretive Statements SINUS RHYTHM WITH SINUS ARRHYTHMIA WITH FIRST DEGREE AV BLOCK NONSPECIFIC T-WAVE ABNORMALITY Compared to ECG 06/12/2022 11:37:50 No significant changes Electronically Signed On 06-12-2022 16:42:17 CDT by Mariana Pillai M.D. [id number]
[2022-06-12 13:30] LABS: Adenovirus Not Detected (NOT DETECT); Chlamydia Pneumoniae Not Detected (NOT DETECT); Coronavirus 229E,HKU1,NL63,OC4 Not Detected (NOT DETECT); Human Metapneumovirus Not Detected (NOT DETECT); Human Rhinovirus/Enterovirus Not Detected (NOT DETECT); Influenza A Not Detected (NOT DETECT); Influenza A H1 Not Detected (NOT DETECT); Influenza A H1-2009 Not Detected (NOT DETECT); Influenza A H3 Not Detected (NOT DETECT); Influenza B Not Detected (NOT DETECT); Mycoplasma Pneumoniae Not Detected (NOT DETECT); Parainfluenza Virus Type 1 Not Detected (NOT DETECT); Parainfluenza Virus Type 2 Not Detected (NOT DETECT); Parainfluenza Virus Type 3 Not Detected (NOT DETECT); Parainfluenza Virus Type 4 Not Detected (NOT DETECT); Respiratory Syncytial Virus A Not Detected (NOT DETECT); Respiratory Syncytial Virus B Not Detected (NOT DETECT); SARS-COV-2 Not Detected (NOT DETECT)
[2022-06-12 13:45] LABS: Blood Urea Nitrogen 11 mg/dL (8-23); Calcium 8.8 mg/dL (8.5-10.5); Carbon Dioxide 28 mmol/L (22-29); Chloride 97 mmol/L (98-107); Glucose 104 mg/dL (65-115); Osmolality Calculated 278 mOsm/kg (285-295); Sodium 134 mmol/L (136-145)
[2022-06-12 13:47] LABS: Troponin(5th) Baseline 12 ng/L (0-10)
[2022-06-12 13:51] LABS: Anion Gap 13.7 (5-19); Potassium 4.7 mmol/L (3.5-5.1)
[2022-06-12 15:44] LABS: Troponin 5 2HR 13.84 ng/L (0-10)
[2022-06-12 15:46] LABS: Troponin 5 2HR Delta 1.84 ABS# (0-10)
--- NOTE | 2022-06-12 17:19 | PC.NURSE ---
Report called to Luann Jones at [facility], patient returning to sending facility, instructions also reviewed with patient who expressed a verbal and written understanding. Patient resting at this time while waiting for transportation.
== END 2022-06-12 18:41 | disposition home or self-care (01) ==
PROVIDERS: Emergency Provider Emergency Medicine; PCP Electrodiagnostic Medicine
DX: R06.00 Dyspnea, unspecified (principal); J44.9 Chronic obstructive pulmonary disease, unspecified; I10 Essential (primary) hypertension; F17.200 Nicotine dependence, unspecified, uncomplicated; Z66 Do not resuscitate
CPT/HCPCS: 71045; 80048; 83880; 84145; 84439; 84443; 84484; 85025; 86140; 87635; 87804; 93005; 94640; 99285